=== PATIENT | male | born 1985 | race Caucasian/White ===

== ENCOUNTER 2018-02-24 19:32 | Inpatient (IN) ==
[2018-02-24] MEDS ORDERED: Dextrose 50% in Water Syringe 50 ML ONE (20:02)
[2018-02-24] MEDS ORDERED: Gentamicin/NS 80 mg Premix 100 ML IV.SIG ONE ×2 (20:08→21:03)
[2018-02-24] MEDS ORDERED: Morphine Inj 4 MG/ML Vial IV.PUSH ONE ×2 (20:08→21:12)
[2018-02-24] MEDS ORDERED: ceFAZolin 2 GM Premix Inj 2 GM/50 ML PIGGYBACK IV.SIG ONE (20:08)
[2018-02-24] MEDS ORDERED: Diphtheria/Tetanus/Pertussis Vaccine Inj 0.5 ML Syringe IM ONE (20:08)
[2018-02-24] MEDS ORDERED: Dextrose 50% in Water 50 ML Vial IV.PUSH ONE (20:10)
--- NOTE | 2018-02-24 20:27 | ED ---
HPI General Chief Complaint: Extremity Injury, Lower Stated Complaint: Left leg injury Time Seen by Provider: 02/24/18 19:59 Source: patient Mode of arrival: EMS Limitations: no limitations History of Present Illness HPI Narrative: The patient is a 32 year old male who presents to the [facility] emergency department with a history of left leg injury that occurred while he was participating in [employer] prior to arrival. The patient reports that he was sparring with someone and they fell onto his left leg with all of their weight. The patient reports that he heard a snap and was unable to walk on the left leg due to severe pain. The patient was noted to have an open fracture by ambulance services prior to arrival. He denies hitting his head or losing consciousness. He denies having any neck pain, numbness or tingling to his extremities, or weakness of his extremities. He denies having any chest pain, chest pressure, or shortness of breath. He denies having any abdominal pain or vomiting prior to arrival. The patient was reporting on arrival feeling shaky and does have a history of diabetes. The patient's blood sugar was checked and was noted to be 56 on arrival. The patient is unsure when his tetanus was last updated. Related Data Home Medications Medication Instructions Recorded Confirmed amlodipine 10 mg PO DAILY 02/24/18 02/24/18 doxazosin 8 mg PO DAILY 02/24/18 02/24/18 levothyroxine [Synthroid] 175 mcg PO DAILY 02/24/18 02/24/18 liothyronine 25 mcg PO DAILY 02/24/18 02/24/18 losartan 100 mg PO DAILY 02/24/18 02/24/18 Allergies Allergy/AdvReac Type Severity Reaction Status Date / Time No Known Allergies Allergy Verified 02/24/18 19:51 Review of Systems ROS: all other systems reviewed are negative [facility] Medical History Medical History Diabetes (Acute) HTN (hypertension) (Acute) Hypothyroid (Acute) Surgical History Surgical History No history of previous surgery (Acute) Social History Social History Substance History: No History of Abuse Second Hand Smoke Exposure: No Smoking Status: Never smoker Tobacco Type: Cigarettes Packs Per Day: 1 Cigarettes Per Day: 20.0 Years Smoked: 10 Pack-Years: 10.00 How Often Do You Have a Drink Containing Alcohol: 2 to 4 times a month Recent Travel in [facility] within the Last 8 Weeks: No Recent Out of Country Travel within the Last 8 Weeks: No Immunization History Tetanus Immunization: <5 Years Exam Narrative Exam Narrative: General: The patient is a well-developed well-nourished male, uncomfortable appearing on arrival with a box splint in place of the left lower extremity. Head and Neck exam: Head is normocephalic atraumatic. No facial bone tenderness or increased facial bone mobility noted on palpation. Eyes: EOMI, pupils are equal round and reactive to light. Nose: Midline septum with pink mucous membranes Mouth: Dentition unremarkable. Moist mucus membranes. Posterior oropharynx is not erythematous. No tonsillar hypertrophy. Uvula midline. Airway patent. Neck: The patient has no spinous process tenderness to palpation, no step-off or crepitus, no erythema or ecchymosis. No pain with full active range of motion of his neck. No tracheal deviation. The trachea appears midline. Cardiovascular: Regular rate and rhythm without murmurs, gallops, or rubs. No pulse deficit to the extremities. Lungs: Clear to auscultation bilaterally. No wheezes, rhonchi, or rales. No chest wall tenderness to palpation. No erythema or ecchymosis noted. No crepitus , step off, or flail segment noted. Abdomen: Soft, without tenderness to palpation in all 4 quadrants of the abdomen. No guarding, rebound, or rigidity. No erythema or ecchymosis noted. Extremities: No instability or pain noted on pelvic rock. No clubbing, cyanosis , or edema. 2+ pulses in all 4 extremities. No extremity tenderness or deformity noted on palpation or passive/ active range of motion, except in the area of interest, the left lower extremity, box splint is in place that is gently opened. The patient is noted to have an open wound that is approximately 5 cm along the inner aspect of the middle portion of the lower leg. The patient has tenderness on palpation with deformity noted. The patient has less than 3-second capillary refill of all of his digits. The patient has soft compartments. The patient is able to move his ankle and toes. The patient has intact sensation over all digits. Back: No spinous process tenderness to palpation. No stepoff or crepitus noted. No costovertebral angle tenderness to palpation. No erythema or ecchymosis. Neurologic Exam: Cranial nerves 2-12 were intact on exam. Strength is 5/5 in all 4 extremities. No sensory deficits noted. Skin Exam: No rash noted. Intact skin that is warm and dry. Procedures Orthopedic Fracture Reduction Fracture #1: Time Out Performed: Yes Side: left Fracture Reduction Location: tibia and fibula Analgesia: procedural sedation Technique: direct manipulation Post Reduction X-rays Demonstrate: acceptable reduction Post-Reduction Neuro Exam: intact Post-Reduction Vascular Exam: intact Splint Applied: Yes Patient Tolerated Procedure: well Procedural Sedation Indications: fracture/dislocation reduction ASA Class: ASA 2 Moderate Systemic Disease Preparation: residential monitor applied, pulse oximeter, capnometry used, supplemental O2 applied, suction/airway equipment at bedside and IV secured IV Propofol Dose (mgs): 70 Patient Tolerated Procedure: well Complications: none Course Consultations Consultation #1: The patient's case including history, pertinent physical examination findings, and laboratory studies were discussed with Dr. López. She requested that the patient be made n.p.o. after midnight. She explained that the patient will be taken to the OR in the morning by Dr. Westfall. Time: 20:38 Consultation #2: The patient's case including history, pertinent physical examination findings, and laboratory studies were discussed with Dr. Back. It was agreed that the patient would be admitted to the hospitalist service. Time: 21:04 Initial Documented Vital Signs Temperature 98 F 02/24/18 19:45 Pulse Rate 110 H 02/24/18 19:45 Respiratory Rate 18 02/24/18 19:45 Blood Pressure 183/86 H 02/24/18 19:45 Pulse Oximetry 99 02/24/18 19:45 Last Documented Vital Signs Temperature 98.5 F 02/25/18 02:01 Pulse Rate 109 H 02/25/18 05:22 Respiratory Rate 18 02/25/18 05:48 Blood Pressure 186/82 H 02/25/18 05:22 Pulse Oximetry 96 02/25/18 05:22 Medical Decision Making MDM Narrative Medical decision making narrative: During the course of the patient's emergency department visit, the patient's history, examination, and differential diagnosis were reviewed with the patient. The patient was placed on a residential monitor with oximetry and frequent blood pressure monitoring. The patient had IV access obtained and blood work sent for analysis. A diagnostic evaluation was started regarding the patient's left leg injury. The patient's blood sugar on arrival was noted to be 56. The patient has an open fracture, therefore oral intake is contraindicated at this time, therefore an amp of D 50 is administered. The patient was initially provided normal saline 1 L IV fluid bolus, morphine 4 mg IV for pain, Zofran 4 mg IV for nausea, Ancef, gentamicin, and update to his tetanus is provided. The patient's diagnostic studies are remarkable for a white count of 7.3, hemoglobin 14.2, platelets 191 with monocytes 12.5, i-STAT with creatinine reveals a glucose of 44 which we were aware of the patient's blood sugar being low and he had already been given 1 amp of dextrose, creatinine is 1.2. Chest x- ray shows no acute abnormality. Left tib-fib x-ray reveals a slightly comminuted fracture of the distal shaft of the tibia and fibula with at least a half shaft width displacement. There is an overlying laceration. There is also an obliquely oriented mildly displaced fracture of the fibular head and neck. The patient will be provided procedural sedation for fracture fragment realignment and placement in a splint. A call has been placed out to the orthopedic physician on-call regarding this open fracture. I Spoke to Dr. López regarding this patient's case. She requested that the patient be made n.p.o. after midnight and that the patient would be going to the OR under the care of Dr. Westfall in the morning. The patient's results were discussed with the patient, including the plan of care. I explained that further testing and/ or monitoring is indicated based on the patient's history, examination, and/ or laboratory findings. Therefore, I recommended admission for additional evaluation. The patient expressed understanding and was agreeable with this plan. The patient was admitted to the hospital in stable condition and sent to a bed under the care of the [facility] service. Medical Screen Exam Complete: Yes Emergency Medical Condition: Yes Differential Diagnosis Differential Diagnosis: Laceration, versus open fracture, versus compartment syndrome Medical Records Medical records reviewed: Yes I reviewed the patient's medical records. Lab Data Lab results reviewed: Yes I reviewed the patient's lab results. Result diagrams: 02/25/18 05:32 02/25/18 05:32 Lab Results 02/24/18 02/24/18 02/24/18 Range/Units 20:10 20:10 20:10 WBC 7.3 (4.0-11.0) th/mm3 RBC 4.65 (4.50-5.90) mil/mm3 Hgb 14.2 (13.0-17.0) gm/dL POC Hgb (Calc) (13.0-17.0) g/dL Hct 41.6 (39.0-51.0) % POC Hct (39-51.0) % MCV 89.5 (80.0-100.0) fL MCH 30.6 (27.0-34.0) pg MCHC 34.2 (32.0-36.0) % RDW 12.9 (11.6-17.2) % Plt Count 191 (150-450) th/mm3 MPV 9.5 (7.0-11.0) fL Prelim Diff (Auto) Slide review pending Neut % (Auto) 61.7 (16.0-70.0) % Lymph % (Auto) 24.4 (9.0-44.0) % [place] % (Auto) 12.5 H (0.0-8.0) % Eos % (Auto) 0.6 (0.0-4.0) % Baso % (Auto) 0.8 (0.0-2.0) % Neut # (Auto) 4.5 (1.8-7.7) th/mm3 Lymph # (Auto) 1.8 (1.0-4.8) th/mm3 [place] # (Auto) 0.9 (0.0-0.9) th/mm3 Eos # (Auto) 0.0 (0.0-0.4) th/mm3 Baso # (Auto) 0.1 (0.0-0.2) th/mm3 WBC Differential . Diff Scan Auto diff confirmed Differential Comment . Platelet Estimate Normal (Normal) Platelet Morphology Normal (Normal) PT 11.3 (9.8-11.6) sec INR 1.1 Ratio APTT 17.8 L (24.3-30.1) sec POC Sodium (137-144) mmol/L Sodium (136-145) meq/L POC Potassium (3.6-5.0) mmol/L Potassium (3.5-5.1) meq/L POC Chloride (102-111) mmol/L Chloride (98-107) meq/L Carbon Dioxide (21.0-32.0) meq/L Anion Gap (5-15) meq/L POC BUN (5-21) mg/dL BUN (7-18) mg/dL Creatinine (0.60-1.30) mg/dL POC Creatinine (0.6-1.3) mg/dL Estimated GFR (>89) mL/min POC Glucose (68-110) mg/dL Random Glucose (74-106) mg/dL Calcium (8.5-10.1) mg/dL Troponin I Less than 0.02 L (0.02-0.05) ng/mL TSH (0.358-3.740) uIU/mL Urine Color (Yellw/Straw) Urine Clarity (Clear) Urine pH (5.0-8.5) Ur Specific [place] (1.002-1.035) Urine Protein (Neg-Trace) mg/dL Urine Glucose (UA) (Negative) mg/dL Urine Ketones (Negative) mg/dL Urine Occult Blood (Negative) Urine Nitrate (Negative) Urine Bilirubin (Negative) Urine Urobilinogen (Less than 2) mg/dL Ur Leukocyte Esterase (Negative) Urine RBC (0-3) /hpf Urine WBC (0-5) /hpf Urine Mucus (Occasional) /lpf Micro UA Comment Ur Microscopic Review Urine Culture Comments Blood Type Blood Type Recheck Antibody Screen 02/24/18 02/24/18 02/24/18 Range/Units 20:10 20:10 20:10 WBC (4.0-11.0) th/mm3 RBC (4.50-5.90) mil/mm3 Hgb (13.0-17.0) gm/dL POC Hgb (Calc) 13.3 (13.0-17.0) g/dL Hct (39.0-51.0) % POC Hct 39.0 (39-51.0) % MCV (80.0-100.0) fL MCH (27.0-34.0) pg MCHC (32.0-36.0) % RDW (11.6-17.2) % Plt Count (150-450) th/mm3 MPV (7.0-11.0) fL Prelim Diff (Auto) Neut % (Auto) (16.0-70.0) % Lymph % (Auto) (9.0-44.0) % [place] % (Auto) (0.0-8.0) % Eos % (Auto) (0.0-4.0) % Baso % (Auto) (0.0-2.0) % Neut # (Auto) (1.8-7.7) th/mm3 Lymph # (Auto) (1.0-4.8) th/mm3 [place] # (Auto) (0.0-0.9) th/mm3 Eos # (Auto) (0.0-0.4) th/mm3 Baso # (Auto) (0.0-0.2) th/mm3 WBC Differential Diff Scan Differential Comment Platelet Estimate (Normal) Platelet Morphology (Normal) PT (9.8-11.6) sec INR Ratio APTT (24.3-30.1) sec POC Sodium 143 (137-144) mmol/L Sodium 143 (136-145) meq/L POC Potassium 3.5 L (3.6-5.0) mmol/L Potassium 3.6 (3.5-5.1) meq/L POC Chloride 102 (102-111) mmol/L Chloride 108 H (98-107) meq/L Carbon Dioxide 25.3 (21.0-32.0) meq/L Anion Gap 10 (5-15) meq/L POC BUN 17 (5-21) mg/dL BUN 16 (7-18) mg/dL Creatinine 1.25 (0.60-1.30) mg/dL POC Creatinine 1.2 (0.6-1.3) mg/dL Estimated GFR 68 L (>89) mL/min POC Glucose 44 L* (68-110) mg/dL Random Glucose 41 L* (74-106) mg/dL Calcium 8.3 L (8.5-10.1) mg/dL Troponin I (0.02-0.05) ng/mL TSH 4.840 H (0.358-3.740) uIU/mL Urine Color (Yellw/Straw) Urine Clarity (Clear) Urine pH (5.0-8.5) Ur Specific [place] (1.002-1.035) Urine Protein (Neg-Trace) mg/dL Urine Glucose (UA) (Negative) mg/dL Urine Ketones (Negative) mg/dL Urine Occult Blood (Negative) Urine Nitrate (Negative) Urine Bilirubin (Negative) Urine Urobilinogen (Less than 2) mg/dL Ur Leukocyte Esterase (Negative) Urine RBC (0-3) /hpf Urine WBC (0-5) /hpf Urine Mucus (Occasional) /lpf Micro UA Comment Ur Microscopic Review Urine Culture Comments Blood Type A Positive Blood Type Recheck Required Antibody Screen Negative 02/24/18 02/24/18 02/25/18 Range/Units 20:55 21:14 00:09 WBC (4.0-11.0) th/mm3 RBC (4.50-5.90) mil/mm3 Hgb (13.0-17.0) gm/dL POC Hgb (Calc) (13.0-17.0) g/dL Hct (39.0-51.0) % POC Hct (39-51.0) % MCV (80.0-100.0) fL MCH (27.0-34.0) pg MCHC (32.0-36.0) % RDW (11.6-17.2) % Plt Count (150-450) th/mm3 MPV (7.0-11.0) fL Prelim Diff (Auto) Neut % (Auto) (16.0-70.0) % Lymph % (Auto) (9.0-44.0) % [place] % (Auto) (0.0-8.0) % Eos % (Auto) (0.0-4.0) % Baso % (Auto) (0.0-2.0) % Neut # (Auto) (1.8-7.7) th/mm3 Lymph # (Auto) (1.0-4.8) th/mm3 [place] # (Auto) (0.0-0.9) th/mm3 Eos # (Auto) (0.0-0.4) th/mm3 Baso # (Auto) (0.0-0.2) th/mm3 WBC Differential Diff Scan Differential Comment Platelet Estimate (Normal) Platelet Morphology (Normal) PT (9.8-11.6) sec INR Ratio APTT (24.3-30.1) sec POC Sodium (137-144) mmol/L Sodium (136-145) meq/L POC Potassium (3.6-5.0) mmol/L Potassium (3.5-5.1) meq/L POC Chloride (102-111) mmol/L Chloride (98-107) meq/L Carbon Dioxide (21.0-32.0) meq/L Anion Gap (5-15) meq/L POC BUN (5-21) mg/dL BUN (7-18) mg/dL Creatinine (0.60-1.30) mg/dL POC Creatinine (0.6-1.3) mg/dL Estimated GFR (>89) mL/min POC Glucose 93 91 155 H (68-110) mg/dL Random Glucose (74-106) mg/dL Calcium (8.5-10.1) mg/dL Troponin I (0.02-0.05) ng/mL TSH (0.358-3.740) uIU/mL Urine Color (Yellw/Straw) Urine Clarity (Clear) Urine pH (5.0-8.5) Ur Specific [place] (1.002-1.035) Urine Protein (Neg-Trace) mg/dL Urine Glucose (UA) (Negative) mg/dL Urine Ketones (Negative) mg/dL Urine Occult Blood (Negative) Urine Nitrate (Negative) Urine Bilirubin (Negative) Urine Urobilinogen (Less than 2) mg/dL Ur Leukocyte Esterase (Negative) Urine RBC (0-3) /hpf Urine WBC (0-5) /hpf Urine Mucus (Occasional) /lpf Micro UA Comment Ur Microscopic Review Urine Culture Comments Blood Type Blood Type Recheck Antibody Screen 02/25/18 02/25/18 02/25/18 Range/Units 01:59 05:30 05:32 WBC 10.5 (4.0-11.0) th/mm3 RBC 4.46 L (4.50-5.90) mil/mm3 Hgb 13.9 (13.0-17.0) gm/dL POC Hgb (Calc) (13.0-17.0) g/dL Hct 40.7 (39.0-51.0) % POC Hct (39-51.0) % MCV 91.3 (80.0-100.0) fL MCH 31.2 (27.0-34.0) pg MCHC 34.1 (32.0-36.0) % RDW 12.9 (11.6-17.2) % Plt Count 190 (150-450) th/mm3 MPV 8.8 (7.0-11.0) fL Prelim Diff (Auto) Neut % (Auto) 78.4 H (16.0-70.0) % Lymph % (Auto) 11.1 (9.0-44.0) % [place] % (Auto) 10.1 H (0.0-8.0) % Eos % (Auto) 0.2 (0.0-4.0) % Baso % (Auto) 0.2 (0.0-2.0) % Neut # (Auto) 8.3 H (1.8-7.7) th/mm3 Lymph # (Auto) 1.2 (1.0-4.8) th/mm3 [place] # (Auto) 1.1 H (0.0-0.9) th/mm3 Eos # (Auto) 0.0 (0.0-0.4) th/mm3 Baso # (Auto) 0.0 (0.0-0.2) th/mm3 WBC Differential . Diff Scan Differential Comment Auto diff final Platelet Estimate (Normal) Platelet Morphology (Normal) PT (9.8-11.6) sec INR Ratio APTT (24.3-30.1) sec POC Sodium (137-144) mmol/L Sodium (136-145) meq/L POC Potassium (3.6-5.0) mmol/L Potassium (3.5-5.1) meq/L POC Chloride (102-111) mmol/L Chloride (98-107) meq/L Carbon Dioxide (21.0-32.0) meq/L Anion Gap (5-15) meq/L POC BUN (5-21) mg/dL BUN (7-18) mg/dL Creatinine (0.60-1.30) mg/dL POC Creatinine (0.6-1.3) mg/dL Estimated GFR (>89) mL/min POC Glucose 251 H 368 H (68-110) mg/dL Random Glucose (74-106) mg/dL Calcium (8.5-10.1) mg/dL Troponin I (0.02-0.05) ng/mL TSH (0.358-3.740) uIU/mL Urine Color (Yellw/Straw) Urine Clarity (Clear) Urine pH (5.0-8.5) Ur Specific [place] (1.002-1.035) Urine Protein (Neg-Trace) mg/dL Urine Glucose (UA) (Negative) mg/dL Urine Ketones (Negative) mg/dL Urine Occult Blood (Negative) Urine Nitrate (Negative) Urine Bilirubin (Negative) Urine Urobilinogen (Less than 2) mg/dL Ur Leukocyte Esterase (Negative) Urine RBC (0-3) /hpf Urine WBC (0-5) /hpf Urine Mucus (Occasional) /lpf Micro UA Comment Ur Microscopic Review Urine Culture Comments Blood Type Blood Type Recheck Antibody Screen 02/25/18 02/25/18 02/25/18 Range/Units 05:32 05:35 06:49 WBC (4.0-11.0) th/mm3 RBC (4.50-5.90) mil/mm3 Hgb (13.0-17.0) gm/dL POC Hgb (Calc) (13.0-17.0) g/dL Hct (39.0-51.0) % POC Hct (39-51.0) % MCV (80.0-100.0) fL MCH (27.0-34.0) pg MCHC (32.0-36.0) % RDW (11.6-17.2) % Plt Count (150-450) th/mm3 MPV (7.0-11.0) fL Prelim Diff (Auto) Neut % (Auto) (16.0-70.0) % Lymph % (Auto) (9.0-44.0) % [place] % (Auto) (0.0-8.0) % Eos % (Auto) (0.0-4.0) % Baso % (Auto) (0.0-2.0) % Neut # (Auto) (1.8-7.7) th/mm3 Lymph # (Auto) (1.0-4.8) th/mm3 [place] # (Auto) (0.0-0.9) th/mm3 Eos # (Auto) (0.0-0.4) th/mm3 Baso # (Auto) (0.0-0.2) th/mm3 WBC Differential Diff Scan Differential Comment Platelet Estimate (Normal) Platelet Morphology (Normal) PT (9.8-11.6) sec INR Ratio APTT (24.3-30.1) sec POC Sodium (137-144) mmol/L Sodium 134 L (136-145) meq/L POC Potassium (3.6-5.0) mmol/L Potassium 4.7 D (3.5-5.1) meq/L POC Chloride (102-111) mmol/L Chloride 98 D (98-107) meq/L Carbon Dioxide 24.3 (21.0-32.0) meq/L Anion Gap 12 (5-15) meq/L POC BUN (5-21) mg/dL BUN 13 (7-18) mg/dL Creatinine 1.18 (0.60-1.30) mg/dL POC Creatinine (0.6-1.3) mg/dL Estimated GFR 72 L (>89) mL/min POC Glucose 323 H (68-110) mg/dL Random Glucose 365 H D (74-106) mg/dL Calcium 8.7 (8.5-10.1) mg/dL Troponin I (0.02-0.05) ng/mL TSH (0.358-3.740) uIU/mL Urine Color Yellow (Yellw/Straw) Urine Clarity Clear (Clear) Urine pH 5.0 (5.0-8.5) Ur Specific [place] 1.015 (1.002-1.035) Urine Protein Negative (Neg-Trace) mg/dL Urine Glucose (UA) 150 H (Negative) mg/dL Urine Ketones 20 (Negative) mg/dL Urine Occult Blood Negative (Negative) Urine Nitrate Negative (Negative) Urine Bilirubin Negative (Negative) Urine Urobilinogen Less than 2 (Less than 2) mg/dL Ur Leukocyte Esterase Negative (Negative) Urine RBC 2 (0-3) /hpf Urine WBC 1 (0-5) /hpf Urine Mucus Few H (Occasional) /lpf Micro UA Comment Culture not ind Ur Microscopic Review Not Reportable Urine Culture Comments Culture not ind Blood Type Blood Type Recheck Antibody Screen Imaging Data Radiologist's impression: Tibia/Fibula X-Ray 02/24/18 20:05 CONCLUSION: Slightly comminuted fractures of the distal shaft tibia and fibula as above with additional mildly displaced fracture of the left fibular head and neck. Chest X-Ray 02/24/18 20:06 CONCLUSION: Negative examination. Pelvis X-Ray 02/24/18 20:06 CONCLUSION: No acute bony abnormality. Tibia/Fibula X-Ray 02/24/18 21:26 CONCLUSION: Improvement in alignment at distal tibial comminuted fracture. Discharge Plan Discharge Disposition Patient Disposition: 32 Still Patient Discharge Details Diagnosis: Open fracture of left fibula and tibia Physicians Team ED Provider: Awilda Schneider Primary Care Provider: UNKNOWN, Attending Provider: Clover Sethi Other Providers: Jacquelin López Todd A Status ED Status: Left Department Discharge Information Discharge Date/Time: 02/24/18 23:20
--- NOTE | 2018-02-24 20:35 | XR ---
EXAM DATE: 02/24/2018 8:31 PM EDT AGE/SEX: 32 years / Male INDICATIONS: Evaluate for pneumonia, pneumothorax, or communicable disease. Left tib/fib fracture. CLINICAL DATA: This is the patient's initial encounter. Patient reports that signs and symptoms have been present for 1 day and indicates a pain score of 0/10. MEDICAL/SURGICAL HISTORY: None. None. COMPARISON: No prior exams available for comparison. FINDINGS: A single AP view of the chest demonstrates the lungs to be symmetrically aerated without evidence of mass, infiltrate or effusion. The cardiomediastinal contours are unremarkable. Osseous structures a re intact. CONCLUSION: Negative examination. Electronically signed by: Roge Acevedo MD 02/24/2018 8:34 PM EDT
[2018-02-24 20:40] LABS: Baso # (Auto) 0.1 th/mm3 (0.0-0.2); Baso % (Auto) 0.8 % (0.0-2.0); Eos % (Auto) 0.6 % (0.0-4.0); Hematocrit 41.6 % (39.0-51.0); Hemoglobin 14.2 gm/dL (13.0-17.0); Lymph # (Auto) 1.8 th/mm3 (1.0-4.8); Lymph % (Auto) 24.4 % (9.0-44.0); Mean Corpuscular HGB Conc 34.2 % (32.0-36.0); Mean Corpuscular Hemoglobin 30.6 pg (27.0-34.0); Mean Corpuscular Volume 89.5 fL (80.0-100.0); Mean Platelet Volume 9.5 fL (7.0-11.0); Mono # (Auto) 0.9 th/mm3 (0.0-0.9); Mono % (Auto) 12.5 % (0.0-8.0); Neut # (Auto) 4.5 th/mm3 (1.8-7.7); Neut % (Auto) 61.7 % (16.0-70.0); Platelet Count 191 th/mm3 (150-450); Red Blood Count 4.65 mil/mm3 (4.50-5.90); Red Cell Distribution Width 12.9 % (11.6-17.2); White Blood Count 7.3 th/mm3 (4.0-11.0)
--- NOTE | 2018-02-24 20:42 | XR ---
EXAM DATE: 02/24/2018 8:36 PM EDT AGE/SEX: 32 years / Male INDICATIONS: Lower leg open fracture. CLINICAL DATA: This is the patient's initial encounter. Patient reports that signs and symptoms have been present for 1 day and indicates a pain score of 10/10. MEDICAL/SURGICAL HISTORY: None. None. COMPARISON: No prior exams available for comparison. FINDINGS: There is a slightly comminuted fracture of both the distal shaft of the tibia and fibula with at leas t half shaft width displacement. There is overlying laceration. There is also an obliquely oriented m ildly displaced fracture of the fibular head and neck. CONCLUSION: Slightly comminuted fractures of the distal shaft tibia and fibula as above with additional mildly di splaced fracture of the left fibular head and neck. Electronically signed by: Azeem Guillermo MD 02/24/2018 8:41 PM EDT
[2018-02-24] MEDS ORDERED: Bisacodyl 10 MG Supp RECTAL PRN (21:04)
[2018-02-24] MEDS ORDERED: Dextrose 50% in Water 50 ML Vial IV.PUSH PRN (21:04)
[2018-02-24] MEDS ORDERED: Naloxone Inj 0.4 MG/ML Vial IV.PUSH PRN (21:08)
[2018-02-24] MEDS ORDERED: fentaNYL Citrate Inj 100 MCG/2 ML Ampul IV.PUSH ONE (21:13)
--- NOTE | 2018-02-24 21:14 | P.HP ---
History of Present Illness Service: Hospitalist Primary Care Physician: UNKNOWN Chief Complaint: Left leg pain History of Present Illness: This is a 32yo male patient with PMHX of DM with implanted insulin pump, HTN and hypothyroidism who was in his normal state of health until he injured his left leg while participating in a Judo sparring match. He was sparring with someone when he fell onto his left leg with all of their weight. Patient reports hearing a snap and was unable to place any weight on the left leg secondary to severe pain. He is also noted to have open laceration. Patient denies hitting his head or losing consciousness. He denies any pain in his neck , weakness, numbness or tingling. On arrival to the ED, patient reports feeling shaky. He was found to have a low blood sugar 44 and was given an amp of D50. Tib/fib xrays reveal a slightly comminuted fracture of the distal shaft of the tibia and fibula with at least half shaft width displacement and overlying laceration. There is also an obliquely oriented mildly displaced fracture of the fibular head neck. Review of Systems All other systems reviewed negative except as stated in HPI PMFSH - History History Provided By: Patient - Medical History Medical History: Medical History (Last Reviewed 02/24/18 @ 21:32 by Priya Laureano) Diabetes HTN (hypertension) Hypothyroid - Surgical History Surgical History: Surgical History (Last Reviewed 02/24/18 @ 21:32 by Priya Laureano) No history of previous surgery - Family History Family History: Family History (Last Updated 02/24/18 @ 21:32 by Priya Laureano) Other Hypertension - Social History I have reviewed the patient's Social History: Yes - Tobacco History Tobacco Use In Past 30 Days: No Smoking Status: Former smoker Tobacco Type: Cigarettes Packs Per Day: 1 Years Smoked: 10 - Alcohol History How Often Do You Have a Drink Containing Alcohol: 2 to 4 times a month - Substance Use History Substance History: No History of Abuse - Travel History Recent Travel in the [place] Within the Last 8 Weeks: No Recent Travel Out of the Country Within the Last 8 Weeks: No - Immunization History Tetanus Immunization: <5 Years Medications and Allergies Active Medications: Active Medications Acetaminophen (Tylenol) 650 mg PO Q6HR PRN PRN Reason: PAIN SCALE 1 TO 2 Al Hydroxide/Mg Hydroxide (Milk Of Magnesia Liq) 30 ml PO Q12H PRN PRN Reason: Mild Constipation Amlodipine Besylate (Norvasc) 10 mg PO DAILY [facility] Bisacodyl (Dulcolax Supp) 10 mg RECTAL DAILY PRN PRN Reason: SEVERE CONSITIPATION Dextrose (D50w Vial) 50 ml IV.PUSH UNSCH PRN PRN Reason: PER HYPOGLYCEMIA PROTOCOL Enalaprilat (Vasotec Inj) 1.25 mg IV.PUSH Q6H PRN PRN Reason: SBP>160, DBP>90 Glucagon (Glucagon Inj) 1 mg OTHER PRN PRN PRN Reason: for Hypoglycemia Protocol Hydromorphone HCl (Dilaudid Pf Inj) 1 mg IV.PUSH ONCE ONE Stop: 02/24/18 21:13 Potassium Chloride/Dextrose/Sod Cl (D5w/1/2ns + Kcl 20 Meq Inj) 1,000 mls @ 50 mls/hr IV.CONT .Q20H JENNIFER Cefazolin Sodium/Dextrose (Ancef 2 Gm Premix Inj) 2 gm in 50 mls @ 100 mls/hr IV.SIG Q8H JENNIFER Stop: 02/25/18 14:29 Insulin Aspart (Novolog Insulin Correctional Sugar Inj) 0 unit SQ ACHS JENNIFER; Protocol Insulin Detemir (Levemir Inj) 5 unit SQ BID JENNIFER Lactulose (Lactulose Liq) 30 ml PO DAILY PRN PRN Reason: SEVERE CONSITIPATION Morphine Sulfate (Morphine Inj) 4 mg IV.PUSH Q3H PRN PRN Reason: PAIN 6-10;IF UNABLE TO TAKE PO Morphine Sulfate (Morphine Inj) 4 mg IV.PUSH Q3H PRN PRN Reason: BREAKTHROUGH PAIN Naloxone HCl (Narcan Inj) 0.4 mg IV.PUSH UNSCH PRN PRN Reason: SEE LABEL COMMENTS Non-Formulary Medication (Doxazosin [Doxazosin]) 8 mg PO DAILY [facility] Non-Formulary Medication (Levothyroxine [Synthroid]) 175 mcg PO DAILY [facility] Non-Formulary Medication (Losartan [Losartan]) 100 mg PO DAILY [facility] Ondansetron HCl (Zofran Inj) 4 mg IV.PUSH Q6H PRN PRN Reason: NAUSEA OR VOMITING Oxycodone/Acetaminophen (Percocet 10/325 Mg) 1 tab PO Q6H PRN PRN Reason: PAIN SCALE 6 TO 10 Oxycodone/Acetaminophen (Percocet 5/325 Mg) 1 tab PO Q6H PRN PRN Reason: PAIN SCALE 3 TO 5 Sennosides (Senokot) 17.2 mg PO Q12H PRN PRN Reason: Moderate Constipation Sodium Chloride (Ns Flush) 2 ml IV.FLUSH PRN PRN PRN Reason: FLUSH AFTER USING IV ACCESS Allergies Allergy/AdvReac Type Severity Reaction Status Date / Time No Known Allergies Allergy Verified 02/24/18 19:51 Home Medications Medication Instructions Recorded Confirmed Type amlodipine 10 mg PO DAILY 02/24/18 02/24/18 History doxazosin 8 mg PO DAILY 02/24/18 02/24/18 History levothyroxine [Synthroid] 175 mcg PO DAILY 02/24/18 02/24/18 History liothyronine 25 mcg PO DAILY 02/24/18 02/24/18 History losartan 100 mg PO DAILY 02/24/18 02/24/18 History Exam Vital signs: Vital Signs 02/24/18 19:45 02/24/18 19:51 02/24/18 20:25 Temperature 98 F Pulse Rate 110 H 102 H Respiratory Rate 18 18 20 Blood Pressure 183/86 H Pulse Oximetry 99 98 100 Intake & Output 02/24/18 02/24/18 02/25/18 06:59 18:59 06:59 Intake Total 50 / 50 Balance 50 / 50 Weight 99.79 kg Intake: IV 50 / 50 Ancef 2 GM Premix Inj 2 gm In 50 / 50 50 ml @ 100 mls/hr IV.SIG ONCE ONE Rx#:[id number] Narrative: GENERAL: WDWN male patient, in obvious distress secondary to left leg pain. Awake and alert. SKIN: Warm and dry. HEAD: Atraumatic. Normocephalic. EYES: Pupils equal and round. No scleral icterus. No injection or drainage. ENT: No nasal bleeding or discharge. Mucous membranes pink and moist. NECK: Trachea midline. CARDIOVASCULAR: Tachycardic. No murmur auscultated. RESPIRATORY: No accessory muscle use. Clear to auscultation. Breath sounds equal bilaterally. GASTROINTESTINAL: Abdomen soft, non-tender, nondistended. Hepatic and splenic margins not palpable. MUSCULOSKELETAL: Extremities without clubbing, cyanosis, or edema. LLE in splint. NV intact distally. NEUROLOGICAL: Awake and alert. No obvious cranial nerve deficits. Motor grossly within normal limits except for limited exam LLE. Able to move all extremities spontaneously. Normal speech. PSYCHIATRIC: Appropriate mood and affect; insight and judgment normal. Results - Labs CBC & Chem 7: 02/24/18 20:10 02/24/18 20:10 Labs: Laboratory Results - last 24 hr 02/24/18 02/24/18 02/24/18 20:10 20:10 20:10 WBC 7.3 RBC 4.65 Hgb 14.2 POC Hgb (Calc) 13.3 Hct 41.6 POC Hct 39.0 MCV 89.5 MCH 30.6 MCHC 34.2 RDW 12.9 Plt Count 191 MPV 9.5 Prelim Diff (Auto) Slide review pending Neut % (Auto) 61.7 Lymph % (Auto) 24.4 Davison % (Auto) 12.5 H Eos % (Auto) 0.6 Baso % (Auto) 0.8 Neut # (Auto) 4.5 Lymph # (Auto) 1.8 Davison # (Auto) 0.9 Eos # (Auto) 0.0 Baso # (Auto) 0.1 Differential Comment . POC Sodium 143 POC Potassium 3.5 L POC Chloride 102 POC BUN 17 POC Creatinine 1.2 POC Glucose 44 L* Troponin I Less than 0.02 L Blood Type Blood Type Recheck Antibody Screen 02/24/18 02/24/18 20:10 20:55 WBC RBC Hgb POC Hgb (Calc) Hct POC Hct MCV MCH MCHC RDW Plt Count MPV Prelim Diff (Auto) Neut % (Auto) Lymph % (Auto) Davison % (Auto) Eos % (Auto) Baso % (Auto) Neut # (Auto) Lymph # (Auto) Davison # (Auto) Eos # (Auto) Baso # (Auto) Differential Comment POC Sodium POC Potassium POC Chloride POC BUN POC Creatinine POC Glucose 93 Troponin I Blood Type A Positive Blood Type Recheck Required Antibody Screen Negative - Imaging Impressions Tibia/Fibula X-Ray 02/24/18 20:05 CONCLUSION: Slightly comminuted fractures of the distal shaft tibia and fibula as above with additional mildly displaced fracture of the left fibular head and neck. Chest X-Ray 02/24/18 20:06 CONCLUSION: Negative examination. Caprini VTE Risk Assessment Caprini VTE Risk Assessment: No/Low Risk (score <= 1) Caprini Risk Assessment Model: Point Value = 1 Point Value = 2 Point Value = 3 Point Value = 5 Age 41-60 Minor surgery BMI > 25 kg/m2 Swollen legs Varicose veins or History of unexplained or recurrent spontaneous Oral contraceptives or hormone replacement Sepsis (< 1 month) Serious lung disease, including pneumonia (< 1 month) Abnormal pulmonary function Acute myocardial infarction Congestive heart failure (< 1 month) History of inflammatory bowel disease Medical patient at bed rest Age 61-74 Arthroscopic surgery Major open surgery (> 45 min) Laparoscopic surgery (> 45 min) Malignancy Confined to bed (> 72 hours) Immobilizing plaster cast Central venous access Age >= 75 History of VTE Family history of VTE Factor V Leiden Prothrombin [id number] Lupus anticoagulant Anticardiolipin antibodies Elevated serum homocysteine Heparin-induced thrombocytopenia Other congenital or acquired thrombophilia Stroke (< 1 month) Elective arthroplasty Hip, pelvis, or leg fracture Acute spinal cord injury (< 1 month) Prophylaxis Regimen: Total Risk Factor Score Risk Level Prophylaxis Regimen 0-1 Low Early ambulation 2 Moderate Order ONE of the following: *Sequential Compression Device (SCD) *Heparin 5000 units SQ BID 3-4 Higher Order ONE of the following medications: *Heparin 5000 units SQ TID *Enoxaparin/Lovenox 40 mg SQ daily (WT < 150 kg, CrCl > 30 mL/min) *Enoxaparin/Lovenox 30 mg SQ daily (WT < 150 kg, CrCl > 10-29 mL/min) *Enoxaparin/Lovenox 30 mg SQ BID (WT < 150 kg, CrCl > 30 mL/min) AND/OR *Sequential Compression Device (SCD) 5 or more Highest Order ONE of the following medications: *Heparin 5000 units SQ TID (Preferred with Epidurals) *Enoxaparin/Lovenox 40 mg SQ daily (WT < 150 kg, CrCl > 30 mL/min) *Enoxaparin/Lovenox 30 mg SQ daily (WT < 150 kg, CrCl > 10-29 mL/min) *Enoxaparin/Lovenox 30 mg SQ BID (WT < 150 kg, CrCl > 30 mL/min) AND *Sequential Compression Device (SCD) Assessment and Plan - Plan 32yo male patient with PMHX of DM, HTN and hypothyroidism who was in his normal state of health until he injured his left leg while participating in a [employer] match. 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 Westfall -IV Cefazolin -NWB LLE -NPO after MN -Pain management with bowel regimen Hypertension, uncontrolled, suspect secondary to LLE pain from open fracture injury -Resume on home dose of amlodipine, Cozaar and Cardura -Continue to monitor BP and adjust treatment accordingly Diabetes hypoglycemic at ED presentation, blood sugar 44, given 1 amp D50 -Patient has an implanted insulin pump with basal 2u/hr and he boluses on sliding scale. -Insulin pump to be turned off. Will cover with Levemir 5u BID and ISS. -accuchecks -hypoglycemic protocol Hypothyroidism -Resume on home dose of levothyroxine 175mcg daily DVT prophylaxis -Chemical prophylaxis contraindicated secondary to upcoming surgical intervention Code Status: Full Discussed Condition With: patient, family at bedside, ED physician, Dr. Back
[2018-02-24 21:18] LABS: Platelet Estimate Normal (Normal); Platelet Morphology Normal (Normal)
[2018-02-24] MEDS ORDERED: Morphine Inj 4 MG/ML Vial IV.PUSH PRN (21:24)
[2018-02-24] MEDS ORDERED: HYDROmorphone PF Inj 1 MG/ML Ampul IV.PUSH ONE (21:30)
[2018-02-24 21:32] LABS: Activated Partial Thrombo Time 17.8 sec (24.3-30.1); INR 1.1 Ratio; Prothrombin Time 11.3 sec (9.8-11.6)
--- NOTE | 2018-02-24 21:55 | XR ---
EXAM DATE: 02/24/2018 9:52 PM EDT AGE/SEX: 32 years / Male INDICATIONS: Patient fell. CLINICAL DATA: This is the patient's initial encounter. Patient reports that signs and symptoms have been present for 1 day and indicates a pain score of 10/10. MEDICAL/SURGICAL HISTORY: None. None. COMPARISON: No prior exams available for comparison. FINDINGS: Examination of the pelvis demonstrates no evidence of fracture or dislocation. Bony mineralization i s normal. There is no widening of the sacroiliac joints. No foreign body is identified. CONCLUSION: No acute bony abnormality. Electronically signed by: Azeem Guillermo MD 02/24/2018 9:54 PM EDT
[2018-02-24] MEDS ORDERED: KCL 20 mEq/D5W/NaCl 0.45% Inj 1,000 ML IV.CONT SCH (22:00)
--- NOTE | 2018-02-24 22:12 | XR ---
EXAM DATE: 02/24/2018 9:56 PM EDT AGE/SEX: 32 years / Male INDICATIONS: Post reduction fracture left tibia. CLINICAL DATA: This is the patient's initial encounter. Patient reports that signs and symptoms have been present for 1 day and indicates a pain score of 10/10. MEDICAL/SURGICAL HISTORY: None. None. COMPARISON: No prior exams available for comparison. FINDINGS: There is improvement in alignment of the distal tibia and fibula across mildly comminuted fractures. Mildly displaced proximal fibular fracture again noted. CONCLUSION: Improvement in alignment at distal tibial comminuted fracture. Electronically signed by: Azeem Guillermo MD 02/24/2018 10:11 PM EDT
[2018-02-24 22:32] LABS: Calcium 8.3 mg/dL (8.5-10.1); Carbon Dioxide 25.3 meq/L (21.0-32.0); Potassium 3.6 meq/L (3.5-5.1)
[2018-02-24 22:48] LABS: Thyroid Stimulating Hormone 4.84 uIU/mL (0.358-3.740)
[2018-02-24] MEDS: Insulin Detemir Inj 1,000 UNIT/10 ML Vial SQ SCH (23:58)
[2018-02-25] MEDS: oxyCODONE/Acetaminophen 10/325 Tablet PO PRN ×3 (00:07→19:44)
[2018-02-25] MEDS: Levothyroxine 75 MCG Tablet PO SCH ×2 (00:11→05:48)
[2018-02-25] MEDS: Morphine Inj 4 MG/ML Vial IV.PUSH PRN ×5 (00:46→22:48)
[2018-02-25] MEDS: Insulin Detemir Inj 1,000 UNIT/10 ML Vial SQ SCH (01:19)
[2018-02-25] MEDS ORDERED: Zolpidem Tartrate 5 MG Tablet PO ONE (01:23)
[2018-02-25] MEDS ORDERED: HYDROmorphone PF Inj 1 MG/ML Ampul IV.PUSH ONE (01:24)
[2018-02-25] MEDS ORDERED: Sod Chloride 0.9% Inj 1,000 ML IV.CONT SCH (02:30)
[2018-02-25] MEDS ORDERED: ceFAZolin 2 GM Premix Inj 2 GM/50 ML PIGGYBACK IV.SIG SCH (04:00)
[2018-02-25] MEDS: Levothyroxine 100 MCG Tablet PO SCH (05:48)
[2018-02-25 06:04] LABS: Baso % (Auto) 0.2 % (0.0-2.0); Eos % (Auto) 0.2 % (0.0-4.0); Hematocrit 40.7 % (39.0-51.0); Hemoglobin 13.9 gm/dL (13.0-17.0); Lymph # (Auto) 1.2 th/mm3 (1.0-4.8); Lymph % (Auto) 11.1 % (9.0-44.0); Mean Corpuscular HGB Conc 34.1 % (32.0-36.0); Mean Corpuscular Hemoglobin 31.2 pg (27.0-34.0); Mean Corpuscular Volume 91.3 fL (80.0-100.0); Mean Platelet Volume 8.8 fL (7.0-11.0); Mono # (Auto) 1.1 th/mm3 (0.0-0.9); Mono % (Auto) 10.1 % (0.0-8.0); Neut # (Auto) 8.3 th/mm3 (1.8-7.7); Neut % (Auto) 78.4 % (16.0-70.0); Platelet Count 190 th/mm3 (150-450); Red Blood Count 4.46 mil/mm3 (4.50-5.90); Red Cell Distribution Width 12.9 % (11.6-17.2); White Blood Count 10.5 th/mm3 (4.0-11.0)
[2018-02-25 06:22] LABS: Bilirubin,Urine Negative (Negative); Clarity,Urine Clear (Clear); Color,Urine Yellow (Yellw/Straw); Glucose,Urine (UA) 150 mg/dL (Negative); Leukocyte Esterase,Urine Negative (Negative); Mucus,Urine Few /lpf (Occasional); Nitrite,Urine Negative (Negative); Specific Gravity,Urine 1.015 (1.002-1.035)
[2018-02-25 06:35] LABS: Calcium 8.7 mg/dL (8.5-10.1); Carbon Dioxide 24.3 meq/L (21.0-32.0); Potassium 4.7 meq/L (3.5-5.1)
[2018-02-25] MEDS ORDERED: Insulin NovoLIN Regular Correctional Sugar Inj ONE (06:55)
[2018-02-25] MEDS ORDERED: Metoprolol Tartrate 25 MG Tablet PO ONE (07:03)
[2018-02-25] MEDS ORDERED: Chlorhexidine Gluconate 2% 1 Pack (2 Cloths) TOPICAL ONE (07:03)
[2018-02-25] MEDS ORDERED: ceFAZolin 1 GM Premix Inj 1 GM/50 ML FROZ.PIGGY IV.SIG ONE (07:05)
--- NOTE | 2018-02-25 07:11 | P.CONOP ---
[facility] Orthopedics Consult Note - [facility] Consult date: 02/25/18 Chief complaint: Open Left Tib Fib Fracture Narrative: Husam is a 32-year-old male with a history of hypertension, hypothyroidism, and diabetes. He was participating in [employer]. Another person fell on top of his leg. He had immediate left leg pain. He was unable to stand or ambulate. He presented to the emergency room where he was found to have an open left tibial shaft fracture. He is currently awake and alert in the emergency department. His only complaint is his left leg. Pain was initially severe and intense. Pain is worse with movement. Pain is improved with rest. He denies dizziness or loss of consciousness. Review of Systems Patient denies fevers, chills, weight loss, headache, visual changes, hearing loss, chest pain, palpitations, shortness of breath, nausea, vomiting, no urinary changes, diarrhea, bowel changes, neck pain, back pain, skin rashes, weakness of extremities, easy bleeding, enlarged lymph nodes, numbness of extremities, anxiety, or depression. He complains of left leg pain Patient's social history, past medical history, and family history were reviewed on chart and with patient. FORMERLY [facility], 1928–1983 - History History Provided By: Patient - Medical History Medical History: Medical History (Last Reviewed 02/25/18 @ 07:08 by Moody Crespo MD) Diabetes HTN (hypertension) Hypothyroid - Surgical History Surgical History: Surgical History (Last Reviewed 02/25/18 @ 07:08 by Moody Crespo MD) No history of previous surgery - Family History Family History: Family History (Last Reviewed 02/25/18 @ 07:08 by Moody Crespo MD) Other Hypertension - Social History I have reviewed the patient's Social History: Yes - Tobacco History Second Hand Smoke Exposure: No Tobacco Use In Past 30 Days: No Smoking Status: Never smoker Tobacco Type: Cigarettes Packs Per Day: 1 Years Smoked: 10 - Alcohol History How Often Do You Have a Drink Containing Alcohol: 2 to 4 times a month - Substance Use History Substance History: No History of Abuse - Travel History Recent Travel in the [facility] Within the Last 8 Weeks: No Recent Travel Out of the Country Within the Last 8 Weeks: No - Immunization History Tetanus Immunization: <5 Years Medications and Allergies Active Medications: Active Medications Acetaminophen (Tylenol) 650 mg PO Q6HR PRN PRN Reason: PAIN SCALE 1 TO 2 Al Hydroxide/Mg Hydroxide (Milk Of Magnesia Liq) 30 ml PO Q12H PRN PRN Reason: Mild Constipation Amlodipine Besylate (Norvasc) 10 mg PO DAILY [facility] Bisacodyl (Dulcolax Supp) 10 mg RECTAL DAILY PRN PRN Reason: SEVERE CONSITIPATION Dextrose (D50w Vial) 50 ml IV.PUSH UNSCH PRN PRN Reason: PER HYPOGLYCEMIA PROTOCOL Doxazosin Mesylate (Cardura) 8 mg PO DAILY [facility] Enalaprilat (Vasotec Inj) 1.25 mg IV.PUSH Q6H PRN PRN Reason: SBP>160, DBP>90 Glucagon (Glucagon Inj) 1 mg OTHER PRN PRN PRN Reason: for Hypoglycemia Protocol Cefazolin Sodium/Dextrose (Ancef 2 Gm Premix Inj) 2 gm in 50 mls @ 100 mls/hr IV.SIG Q8H [facility] Stop: 02/25/18 20:29 Last Infusion: 02/25/18 06:02 Dose: Infused Sodium Chloride (Ns Inj) 1,000 mls @ 70 mls/hr IV.CONT .[id number] [facility] Last Admin: 02/25/18 02:28 Dose: 70 mls/hr Sodium Chloride (Ns Inj) 500 mls @ 30 mls/hr IV.SIG .Q10H [facility] Lactated Ringer's (Lr 1000 Ml Inj) 1,000 mls @ 30 mls/hr IV.SIG .Q24H [facility] Stop: 02/26/18 07:14 Insulin Aspart (Novolog Insulin Correctional Sugar Inj) 0 unit SQ ACHS [facility]; Protocol Insulin Detemir (Levemir Inj) 5 unit SQ BID [facility] Last Admin: 02/25/18 01:19 Dose: Not Given Lactulose (Lactulose Liq) 30 ml PO DAILY PRN PRN Reason: SEVERE CONSITIPATION Levothyroxine Sodium (Synthroid) 75 mcg PO DAILY@0600 [facility] Last Admin: 02/25/18 05:48 Dose: Not Given Levothyroxine Sodium (Synthroid) 100 mcg PO DAILY@0600 [facility] Last Admin: 02/25/18 05:48 Dose: Not Given Losartan Potassium (Cozaar) 100 mg PO DAILY [facility] Morphine Sulfate (Morphine Inj) 4 mg IV.PUSH Q3H PRN PRN Reason: PAIN 6-10;IF UNABLE TO TAKE PO Last Admin: 10/31/18 05:24 Dose: 4 mg Morphine Sulfate (Morphine Inj) 4 mg IV.PUSH Q3H PRN PRN Reason: BREAKTHROUGH PAIN Last Admin: 02/25/18 00:46 Dose: 4 mg Morphine Sulfate (Morphine Inj) 4 mg IV.PUSH Q1H PRN PRN Reason: Pain Scale 7-10 (Intractable) Naloxone HCl (Narcan Inj) 0.4 mg IV.PUSH UNSCH PRN PRN Reason: SEE LABEL COMMENTS Ondansetron HCl (Zofran Inj) 4 mg IV.PUSH Q6H PRN PRN Reason: NAUSEA OR VOMITING Oxycodone/Acetaminophen (Percocet 10/325 Mg) 1 tab PO Q6H PRN PRN Reason: PAIN SCALE 6 TO 10 Last Admin: 02/25/18 00:07 Dose: 1 tab Oxycodone/Acetaminophen (Percocet 5/325 Mg) 1 tab PO Q6H PRN PRN Reason: PAIN SCALE 3 TO 5 Sennosides (Senokot) 17.2 mg PO Q12H PRN PRN Reason: Moderate Constipation Sodium Chloride (Ns Flush) 2 ml IV.FLUSH PRN PRN PRN Reason: FLUSH AFTER USING IV ACCESS Allergies Allergy/AdvReac Type Severity Reaction Status Date / Time No Known Allergies Allergy Verified 02/24/18 19:51 Home Medications Medication Instructions Recorded Confirmed Type amlodipine 10 mg PO DAILY 02/24/18 02/24/18 History doxazosin 8 mg PO DAILY 02/24/18 02/24/18 History levothyroxine [Synthroid] 175 mcg PO DAILY 02/24/18 02/24/18 History liothyronine 25 mcg PO DAILY 02/24/18 02/24/18 History losartan 100 mg PO DAILY 02/24/18 02/24/18 History Exam Vital signs: Vital Signs 02/24/18 19:45 02/24/18 19:51 02/24/18 20:25 Temperature 98 F Pulse Rate 110 H 102 H Respiratory Rate 18 18 20 Blood Pressure 183/86 H Pulse Oximetry 99 98 100 02/24/18 21:25 02/24/18 23:42 02/25/18 00:11 Temperature 98.2 F Pulse Rate 101 H Respiratory Rate 20 18 Blood Pressure 165/72 H Pulse Oximetry 98 94 L 02/25/18 00:12 02/25/18 00:50 02/25/18 01:11 Temperature Pulse Rate Respiratory Rate 18 18 18 Blood Pressure Pulse Oximetry 02/25/18 02:01 02/25/18 03:09 02/25/18 03:32 Temperature 98.5 F Pulse Rate 116 H Respiratory Rate 18 18 18 Blood Pressure 181/85 H Pulse Oximetry 02/25/18 05:22 02/25/18 05:48 Temperature Pulse Rate 109 H Respiratory Rate 18 18 Blood Pressure 186/82 H Pulse Oximetry 96 Intake & Output 02/24/18 02/25/18 02/25/18 18:59 06:59 18:59 Intake Total 300 / 300 Output Total 1000 / 1000 Balance -700 / -700 Weight 99.79 kg Intake: IV 300 / 300 D5W/1/2NS + KCL 20 mEq Inj 1, 100 / 100 000 ML @ 50 mls/hr IV.CONT . Q20H [facility] Rx#:[id number] Gentamicin/NS 80 mg Premix 100 100 / 100 ML @ 200 mls/hr IV.SIG ONCE ONE Rx#:[id number] Ancef 2 GM Premix Inj 2 gm In 100 / 100 50 ml @ 100 mls/hr IV.SIG Q8H [facility] Rx#:[id number] Output: Urine 1000 / 1000 Other: Date of Last Bowel Movement 02/24/18 Narrative: Husam is a 32-year-old male. General: Awake and alert. No acute distress. Appears well-developed well- nourished Head: Normocephalic, atraumatic pupils are equal Neck: Soft, nontender, trachea midline Abdomen: Soft, nondistended Examination of right arm reveals no pain or deformity with shoulder, elbow, or wrist motion. Skin is intact. Radial pulse is palpable. Normal capillary refill in fingers. Sensation is intact in radial, ulnar, and median nerve distributions. Social Services Technician strength is +5. No lymphadenopathy noted. Examination of left arm reveals no pain or deformity with shoulder, elbow, or wrist motion. Skin is intact. Radial pulse is palpable. Normal capillary refill in fingers. Sensation is intact in radial, ulnar, and median nerve distributions. Social Services Technician strength is +5. No lymphadenopathy noted. Examination of left lower extremity reveals no pain or deformity around his hip or knee. He has some deformity of his mid tibia region. He has pain with ankle motion. Skin is intact. Sensation is intact in left foot. Dorsalis pedis pulse is palpable. Normal capillary refill and feet. Thigh and calf compartments are soft. No lymphadenopathy noted. Examination of right lower extremity reveals no pain or deformity with hip, knee , or ankle motion. Skin is intact. Sensation is intact in right foot. Dorsalis pedis pulse is palpable. Normal capillary refill and feet. Thigh and calf compartments are soft. No lymphadenopathy noted. +5 strength of ankle dorsiflexion and plantarflexion. Results - Labs Result Diagrams: 02/25/18 05:32 02/25/18 05:32 Labs: Laboratory Results - last 24 hr 02/24/18 02/24/18 02/24/18 20:10 20:10 20:10 WBC 7.3 RBC 4.65 Hgb 14.2 POC Hgb (Calc) Hct 41.6 POC Hct MCV 89.5 MCH 30.6 MCHC 34.2 RDW 12.9 Plt Count 191 MPV 9.5 Prelim Diff (Auto) Slide review pending Neut % (Auto) 61.7 Lymph % (Auto) 24.4 Nicholas % (Auto) 12.5 H Eos % (Auto) 0.6 Baso % (Auto) 0.8 Neut # (Auto) 4.5 Lymph # (Auto) 1.8 Nicholas # (Auto) 0.9 Eos # (Auto) 0.0 Baso # (Auto) 0.1 WBC Differential . Diff Scan Auto diff confirmed Differential Comment . Platelet Estimate Normal Platelet Morphology Normal PT 11.3 INR 1.1 APTT 17.8 L POC Sodium Sodium POC Potassium Potassium POC Chloride Chloride Carbon Dioxide Anion Gap POC BUN BUN Creatinine POC Creatinine Estimated GFR POC Glucose Random Glucose Calcium Troponin I Less than 0.02 L TSH Urine Color Urine Clarity Urine pH Ur Specific Brick Urine Protein Urine Glucose (UA) Urine Ketones Urine Occult Blood Urine Nitrate Urine Bilirubin Urine Urobilinogen Ur Leukocyte Esterase Urine RBC Urine WBC Urine Mucus Micro UA Comment Ur Microscopic Review Urine Culture Comments Blood Type Blood Type Recheck Antibody Screen 02/24/18 02/24/18 02/24/18 20:10 20:10 20:10 WBC RBC Hgb POC Hgb (Calc) 13.3 Hct POC Hct 39.0 MCV MCH MCHC RDW Plt Count MPV Prelim Diff (Auto) Neut % (Auto) Lymph % (Auto) Nicholas % (Auto) Eos % (Auto) Baso % (Auto) Neut # (Auto) Lymph # (Auto) Nicholas # (Auto) Eos # (Auto) Baso # (Auto) WBC Differential Diff Scan Differential Comment Platelet Estimate Platelet Morphology PT INR APTT POC Sodium 143 Sodium 143 POC Potassium 3.5 L Potassium 3.6 POC Chloride 102 Chloride 108 H Carbon Dioxide 25.3 Anion Gap 10 POC BUN 17 BUN 16 Creatinine 1.25 POC Creatinine 1.2 Estimated GFR 68 L POC Glucose 44 L* Random Glucose 41 L* Calcium 8.3 L Troponin I TSH 4.840 H Urine Color Urine Clarity Urine pH Ur Specific Brick Urine Protein Urine Glucose (UA) Urine Ketones Urine Occult Blood Urine Nitrate Urine Bilirubin Urine Urobilinogen Ur Leukocyte Esterase Urine RBC Urine WBC Urine Mucus Micro UA Comment Ur Microscopic Review Urine Culture Comments Blood Type A Positive Blood Type Recheck Required Antibody Screen Negative 02/24/18 02/24/18 02/25/18 20:55 21:14 00:09 WBC RBC Hgb POC Hgb (Calc) Hct POC Hct MCV MCH MCHC RDW Plt Count MPV Prelim Diff (Auto) Neut % (Auto) Lymph % (Auto) Nicholas % (Auto) Eos % (Auto) Baso % (Auto) Neut # (Auto) Lymph # (Auto) Nicholas # (Auto) Eos # (Auto) Baso # (Auto) WBC Differential Diff Scan Differential Comment Platelet Estimate Platelet Morphology PT INR APTT POC Sodium Sodium POC Potassium Potassium POC Chloride Chloride Carbon Dioxide Anion Gap POC BUN BUN Creatinine POC Creatinine Estimated GFR POC Glucose 93 91 155 H Random Glucose Calcium Troponin I TSH Urine Color Urine Clarity Urine pH Ur Specific Brick Urine Protein Urine Glucose (UA) Urine Ketones Urine Occult Blood Urine Nitrate Urine Bilirubin Urine Urobilinogen Ur Leukocyte Esterase Urine RBC Urine WBC Urine Mucus Micro UA Comment Ur Microscopic Review Urine Culture Comments Blood Type Blood Type Recheck Antibody Screen 02/25/18 02/25/18 02/25/18 01:59 05:30 05:32 WBC 10.5 RBC 4.46 L Hgb 13.9 POC Hgb (Calc) Hct 40.7 POC Hct MCV 91.3 MCH 31.2 MCHC 34.1 RDW 12.9 Plt Count 190 MPV 8.8 Prelim Diff (Auto) Neut % (Auto) 78.4 H Lymph % (Auto) 11.1 Nicholas % (Auto) 10.1 H Eos % (Auto) 0.2 Baso % (Auto) 0.2 Neut # (Auto) 8.3 H Lymph # (Auto) 1.2 Nicholas # (Auto) 1.1 H Eos # (Auto) 0.0 Baso # (Auto) 0.0 WBC Differential . Diff Scan Differential Comment Auto diff final Platelet Estimate Platelet Morphology PT INR APTT POC Sodium Sodium POC Potassium Potassium POC Chloride Chloride Carbon Dioxide Anion Gap POC BUN BUN Creatinine POC Creatinine Estimated GFR POC Glucose 251 H 368 H Random Glucose Calcium Troponin I TSH Urine Color Urine Clarity Urine pH Ur Specific Brick Urine Protein Urine Glucose (UA) Urine Ketones Urine Occult Blood Urine Nitrate Urine Bilirubin Urine Urobilinogen Ur Leukocyte Esterase Urine RBC Urine WBC Urine Mucus Micro UA Comment Ur Microscopic Review Urine Culture Comments Blood Type Blood Type Recheck Antibody Screen 02/25/18 02/25/18 02/25/18 05:32 05:35 06:49 WBC RBC Hgb POC Hgb (Calc) Hct POC Hct MCV MCH MCHC RDW Plt Count MPV Prelim Diff (Auto) Neut % (Auto) Lymph % (Auto) Nicholas % (Auto) Eos % (Auto) Baso % (Auto) Neut # (Auto) Lymph # (Auto) Nicholas # (Auto) Eos # (Auto) Baso # (Auto) WBC Differential Diff Scan Differential Comment Platelet Estimate Platelet Morphology PT INR APTT POC Sodium Sodium 134 L POC Potassium Potassium 4.7 D POC Chloride Chloride 98 D Carbon Dioxide 24.3 Anion Gap 12 POC BUN BUN 13 Creatinine 1.18 POC Creatinine Estimated GFR 72 L POC Glucose 323 H Random Glucose 365 H D Calcium 8.7 Troponin I TSH Urine Color Yellow Urine Clarity Clear Urine pH 5.0 Ur Specific Brick 1.015 Urine Protein Negative Urine Glucose (UA) 150 H Urine Ketones 20 Urine Occult Blood Negative Urine Nitrate Negative Urine Bilirubin Negative Urine Urobilinogen Less than 2 Ur Leukocyte Esterase Negative Urine RBC 2 Urine WBC 1 Urine Mucus Few H Micro UA Comment Culture not ind Ur Microscopic Review Not Reportable Urine Culture Comments Culture not ind Blood Type Blood Type Recheck Antibody Screen - Diagnostic results Imaging: Impressions Tibia/Fibula X-Ray 02/24/18 20:05 CONCLUSION: Slightly comminuted fractures of the distal shaft tibia and fibula as above with additional mildly displaced fracture of the left fibular head and neck. Chest X-Ray 02/24/18 20:06 CONCLUSION: Negative examination. Pelvis X-Ray 02/24/18 20:06 CONCLUSION: No acute bony abnormality. Tibia/Fibula X-Ray 02/24/18 21:26 CONCLUSION: Improvement in alignment at distal tibial comminuted fracture. Knee x-ray: report reviewed, image reviewed Ankle/Foot x-ray: report reviewed, image reviewed Assessment and Plan - Assessment and Plan Nate is a 32-year-old male with type 1 diabetes. He sustained an injury yesterday resulting type I open tibia fracture. He has been on antibiotics. At this point I would recommend surgery for irrigation debridement of open fracture followed by intramedullary nail fixation. The risk and benefits of surgery were discussed in depth with patient. All questions were answered. Informed consent was obtained. The risk and benefits of surgery were discussed in depth with patient. The risk of surgery include bleeding, infection, injuries to arteries, nerves, or blood vessels, infection, wound complications, nonunion, malunion, painful hardware, and need for further surgery. I also discussed medical complications including blood clots, pneumonia, stroke, heart attack, and . Informed consent was obtained and all questions were answered. N.p.o.--plan on surgery this morning Calcium and vitamin D supplementation Physical therapy consult Follow-up with Dr. Crespo in 2 weeks SCDs, SIMONA barajas, A mid-level provider in my office (nurse practitioner or physician diploma dental assistant) may see this patient on follow-up visits and continue to implement the objectives of this plan including: Starting or adjusting medications, injections , cast application, orthotics, brace application, physical therapy, radiological studies (including x-ray, MRI, CT, ultrasound, bone scan), vascular studies, neurologic studies, specialist consultation, and proceeding with surgical management, as appropriate.
[2018-02-25] MEDS ORDERED: Sod Chloride 0.9% Inj 1,000 ML IV.CONT ONE (07:18)
[2018-02-25] MEDS ORDERED: Sodium Chlor 0.9% Inj 250 ML IV.CONT ONE (07:18)
[2018-02-25] MEDS ORDERED: Metoprolol Inj 5 MG/5 ML Vial IV.PUSH ONE (07:18)
[2018-02-25] MEDS ORDERED: Phenylephrine/NS 1000 MCG/10ML Syringe IV.PUSH ONE (07:18)
[2018-02-25] MEDS ORDERED: Lidocaine PF 1% Inj 5 ML Syringe OTHER ONE (07:18)
[2018-02-25] MEDS ORDERED: Sodium Chlor 0.9% Inj 500 ML IV.SIG SCH (08:00)
[2018-02-25] MEDS ORDERED: Bisacodyl 10 MG Supp RECTAL PRN (08:36)
[2018-02-25] MEDS ORDERED: Post-op Orders (for Pharmacy) OTHER STA (08:36)
--- NOTE | 2018-02-25 08:47 | P.OP ---
- Preoperative Diagnosis (1) Open fracture of left fibula and tibia Date of procedure: 02/25/18 Procedure: Left tibia irrigation and debridement, left tibia reduction and intramedullary fixation, application of wound VAC dressing Anesthesia: GETA Surgeon: Moody Crespo MD Medical Office Technology Instructor: RUDY Foote PA-C The surgical procedure was assisted by my physician observation assistant. My P.A. presence was necessary throughout this case for the manipulation and positioning of the surgical extremity. My P.A. was assisting me throughout the duration of this procedure. The skill set of a physician observation assistant was medically necessary to complete this procedure. During the surgical case the surgical rn was working at the back table and the physician observation assistant was directly assisting me. Operation and Findings: Implants: ITS [9]mm x [360]mm tibial nail Plan of activity: 50% weightbearing left leg times 4 weeks Details of procedure: Patient was seen and examined preoperatively. An informed consent was obtained from patient after detailed discussion of risk and benefits. Risks of surgery include bleeding, infection, painful hardware, nonunion, malunion, leg length discrepancy, need for hardware removal, and medical complications associated with anesthesia including blood clots, stroke, heart attack, and were discussed. Operative site was marked. Patient was brought to the operating room placed on or table. Patient received IV antibiotics and was given IV sedation GETA. Operative leg was prepped with alcohol Hibiclens and draped in usual sterile fashion. Timeout procedure was performed Procedure began with irrigation and debridement of open fracture. The traumatic laceration was extended proximally and distally. An excisional debridement was performed. Overall the wound appeared to be clean. Curettes and rongours were used to debride bone. Soft tissue and bone were now thoroughly irrigated with pulsatile lavage. Next, attention was turned towards reduction of fracture. A percutaneous clamp was placed around fracture site. Traction was applied. Fracture was reduced. There was comminution of the fracture. The fracture reduced and excellent alignment was achieved. Fracture clamp was used to aid in reduction. Next a 3 cm incision was made proximal to the patella. Quadriceps tendon was split in line with fibers. Cannulas were placed in the patellofemoral joint to protect the articular surface at all times. A guidepin was placed into the tibia and advanced in the tibial canal. Fluoroscopy was used to confirm appropriate guidepin placement. An opening reamer was used to open the tibial canal. A ball-tipped guidewire was advanced down the tibial canal. Guidepin was passed across the fracture site into the center of the distal tibia. Fluoroscopy confirmed guidepin placement. The nail length was now measured. The fracture was now held in a reduced position and the canal was reamed. The canal was reamed up to appropriate size. A tibia nail was now selected. Next the nail was fully seated. Using perfect the [place] technique 2 distal interlocking screws were placed. Using the insertion handle as a guide 1 proximal interlocking screw was placed. Fluoroscopy confirmed excellent of fracture with well-placed hardware. Incisions and the knee joint were thoroughly irrigated with sterile saline. Fascia was closed with #1 Vicryl, subcutaneous tissues closed with 3-0 Vicryl and skin was closed with dianne. The traumatic laceration was closed with 3-0 PDS and 3-0 nylon. Because this skin was traumatized around the open fracture, an incisional wound VAC dressing was applied. VAC dressing was sealed appropriately. Sterile dressings were applied. Patient was awakened and transferred to recovery in stable condition.
[2018-02-25] MEDS ORDERED: fentaNYL Citrate Inj 100 MCG/2 ML Ampul ONE (08:57)
[2018-02-25] MEDS ORDERED: Senna/Docusate Sodium 8.6/50 MG Tablet PO SCH (09:00)
[2018-02-25] MEDS ORDERED: *morphine SULFATE 4 MG/ML PERIprocedure ONLY ONE ×3 (09:02→09:40)
[2018-02-25] MEDS: Insulin NovoLOG Aspart Correctional Sugar Inj SQ SCH ×4 (09:17→22:47)
--- NOTE | 2018-02-25 09:34 | XR ---
EXAM DATE: 02/25/2018 8:48 AM EDT AGE/SEX: 32 years / Male INDICATIONS: Post-op ORIF left tibia. CLINICAL DATA: This is the patient's subsequent encounter. Patient reports that signs and symptoms h ave been present for 2 days and indicates a pain score of Nonresponsive. MEDICAL/SURGICAL HISTORY: Non-responsive. Non-responsive. COMPARISON: [facility] [place] [facility] [place]IBIA FIBULA LEFT 2V, 02/24/2018. . FINDINGS: Multiple coned-down views of the tibia and fibula were obtained and demonstrate interval placement of an intramedullary enrique with locking screws transfixing the mid tibial fracture. The fracture fragment s are now in anatomic alignment. The mid fibular fracture is again identified with only minimal displ acement. CONCLUSION: Status post open rigid internal fixation. Electronically signed by: Abhi Gleason MD 02/25/2018 9:33 AM EDT
[2018-02-25] MEDS ORDERED: *HYDROmorphone PF Inj 1 MG/ML Ampul PERIprocedural Use ONLY ONE ×2 (09:58→10:25)
[2018-02-25] MEDS: Doxazosin 4 MG Tablet PO SCH (12:02)
[2018-02-25] MEDS: amLODIPine 10 MG Tablet PO SCH (12:06)
[2018-02-25] MEDS: Calcium/Vitamin D 250/125 MG Tablet PO SCH ×3 (12:06→17:49)
[2018-02-25] MEDS: ceFAZolin Inj 2,000 MG in Sodium Chlor 0.9% Inj 80 ML IV.SIG SCH ×2 (14:12→22:46)
[2018-02-25] MEDS: Gentamicin/NS 80 mg Premix 100 ML IV.SIG SCH ×2 (15:37→22:45)
--- NOTE | 2018-02-25 16:07 | P.PN ---
Subjective Interval history: Follow-up for left tib-fib fracture, type 1 diabetes, hypertension. Patient is seen after surgery. Reports his left leg pain is about a 67/10, but does get relief with pain medications. He has tolerated oral intake post surgery. He denies any nausea or vomiting. Has not had a bowel movement since prior to his arrival. He has no other medical complaints including no chest pain or shortness of breath. He states he was diagnosed with type I diabetes 22 years ago. He states his blood sugars are fairly well controlled with his insulin pump. He has now started using his insulin pump while in the hospital. Physical Exam Vital signs: Vital Signs 02/24/18 19:45 02/24/18 19:51 02/24/18 20:25 Temperature 98 F Pulse Rate 110 H 102 H Respiratory Rate 18 18 20 Blood Pressure 183/86 H Pulse Oximetry 99 98 100 02/24/18 21:25 02/24/18 23:42 02/25/18 00:11 Temperature 98.2 F Pulse Rate 101 H Respiratory Rate 20 18 Blood Pressure 165/72 H Pulse Oximetry 98 94 L 02/25/18 00:12 02/25/18 00:50 02/25/18 01:11 Temperature Pulse Rate Respiratory Rate 18 18 18 Blood Pressure Pulse Oximetry 02/25/18 02:01 02/25/18 03:09 02/25/18 03:32 Temperature 98.5 F Pulse Rate 116 H Respiratory Rate 18 18 18 Blood Pressure 181/85 H Pulse Oximetry 02/25/18 05:22 02/25/18 05:48 02/25/18 08:52 Temperature 98.1 F Pulse Rate 109 H 104 H Respiratory Rate 18 18 18 Blood Pressure 186/82 H 155/67 H Pulse Oximetry 96 100 02/25/18 09:15 02/25/18 09:30 02/25/18 11:00 Temperature Pulse Rate 101 H 100 H 110 H Respiratory Rate 18 18 15 Blood Pressure 163/74 H 164/72 H 139/66 Pulse Oximetry 99 99 98 02/25/18 12:00 02/25/18 12:40 02/25/18 13:13 Temperature 97.9 F 98.2 F Pulse Rate 119 H 113 H Respiratory Rate 15 5 L 18 Blood Pressure 146/77 H 146/70 H Pulse Oximetry 98 98 02/25/18 13:44 02/25/18 14:02 02/25/18 15:39 Temperature Pulse Rate Respiratory Rate 18 18 Blood Pressure Pulse Oximetry 98 Intake & Output 02/24/18 02/25/18 02/25/18 18:59 06:59 18:59 Intake Total 300 / 300 1840 / 1840 Output Total 1000 / 1000 1650 / 1650 Balance -700 / -700 190 / 190 Weight 99.79 kg 99.79 kg Intake: IV 300 / 300 100 / 100 D5W/1/2NS + KCL 20 mEq Inj 1, 100 / 100 000 ML @ 50 mls/hr IV.CONT . Q20H JENNIFER Rx#:[id number] Gentamicin/NS 80 mg Premix 100 100 / 100 ML @ 200 mls/hr IV.SIG ONCE ONE Rx#:[id number] Ancef 2 GM Premix Inj 2 gm In 100 / 100 50 ml @ 100 mls/hr IV.SIG Q8H JENNIFER Rx#:[id number] Ancef Inj 2,000 MG In NS Inj 80 100 / 100 ML @ 200 mls/hr IV.SIG Q8H JENNIFER Rx#:[id number] Oral 240 / 240 Anesthesia Amount 1500 / 1500 Output: Urine 1000 / 1000 900 / 900 Emesis 700 / 700 Estimated Blood Loss 50 / 50 Other: Mode Setting Left Leg Continuous Date of Last Bowel Movement 02/24/18 Weight On Admission 99.79 kg Narrative: GENERAL: Well-nourished, well-developed very pleasant young male patient in [facility]. SKIN: Warm and dry. No rash. HEENT: Normocephalic. Atraumatic. Pupils equal and round. Mucous membranes pink and moist. CARDIOVASCULAR: Regular rate and rhythm. 1/6 systolic murmur. RESPIRATORY: No accessory muscle use. Clear to auscultation. Breath sounds equal bilaterally. GASTROINTESTINAL: Abdomen soft, non-tender, nondistended. Normoactive bowel sounds x4. MUSCULOSKELETAL: No obvious deformities. Left lower extremity in surgical splint/dressing, CDI. 2+ bilateral dorsalis pedis pulses with brisk capillary refill bilaterally. NEUROLOGICAL: Awake and alert. No obvious cranial nerve deficits. Motor grossly within normal limits. Moving all extremities spontaneously. Normal speech. PSYCHIATRIC: Appropriate mood and affect; insight and judgment normal. Results - Labs CBC & Chem 7: 02/25/18 05:32 02/25/18 05:32 Laboratory Results - last 24 hr 02/24/18 02/24/18 02/24/18 20:10 20:10 20:10 WBC 7.3 RBC 4.65 Hgb 14.2 POC Hgb (Calc) Hct 41.6 POC Hct MCV 89.5 MCH 30.6 MCHC 34.2 RDW 12.9 Plt Count 191 MPV 9.5 Prelim Diff (Auto) Slide review pending Neut % (Auto) 61.7 Lymph % (Auto) 24.4 [place] % (Auto) 12.5 H Eos % (Auto) 0.6 Baso % (Auto) 0.8 Neut # (Auto) 4.5 Lymph # (Auto) 1.8 [place] # (Auto) 0.9 Eos # (Auto) 0.0 Baso # (Auto) 0.1 WBC Differential . Diff Scan Auto diff confirmed Differential Comment . Platelet Estimate Normal Platelet Morphology Normal PT 11.3 INR 1.1 APTT 17.8 L POC Sodium Sodium POC Potassium Potassium POC Chloride Chloride Carbon Dioxide Anion Gap POC BUN BUN Creatinine POC Creatinine Estimated GFR POC Glucose Random Glucose Calcium Troponin I Less than 0.02 L TSH Urine Color Urine Clarity Urine pH Ur Specific [place] Urine Protein Urine Glucose (UA) Urine Ketones Urine Occult Blood Urine Nitrate Urine Bilirubin Urine Urobilinogen Ur Leukocyte Esterase Urine RBC Urine WBC Urine Mucus Micro UA Comment Ur Microscopic Review Urine Culture Comments Blood Type Blood Type Recheck Antibody Screen 02/24/18 02/24/18 02/24/18 20:10 20:10 20:10 WBC RBC Hgb POC Hgb (Calc) 13.3 Hct POC Hct 39.0 MCV MCH MCHC RDW Plt Count MPV Prelim Diff (Auto) Neut % (Auto) Lymph % (Auto) [place] % (Auto) Eos % (Auto) Baso % (Auto) Neut # (Auto) Lymph # (Auto) [place] # (Auto) Eos # (Auto) Baso # (Auto) WBC Differential Diff Scan Differential Comment Platelet Estimate Platelet Morphology PT INR APTT POC Sodium 143 Sodium 143 POC Potassium 3.5 L Potassium 3.6 POC Chloride 102 Chloride 108 H Carbon Dioxide 25.3 Anion Gap 10 POC BUN 17 BUN 16 Creatinine 1.25 POC Creatinine 1.2 Estimated GFR 68 L POC Glucose 44 L* Random Glucose 41 L* Calcium 8.3 L Troponin I TSH 4.840 H Urine Color Urine Clarity Urine pH Ur Specific [place] Urine Protein Urine Glucose (UA) Urine Ketones Urine Occult Blood Urine Nitrate Urine Bilirubin Urine Urobilinogen Ur Leukocyte Esterase Urine RBC Urine WBC Urine Mucus Micro UA Comment Ur Microscopic Review Urine Culture Comments Blood Type A Positive Blood Type Recheck Required Antibody Screen Negative 02/24/18 02/24/18 02/25/18 20:55 21:14 00:09 WBC RBC Hgb POC Hgb (Calc) Hct POC Hct MCV MCH MCHC RDW Plt Count MPV Prelim Diff (Auto) Neut % (Auto) Lymph % (Auto) [place] % (Auto) Eos % (Auto) Baso % (Auto) Neut # (Auto) Lymph # (Auto) [place] # (Auto) Eos # (Auto) Baso # (Auto) WBC Differential Diff Scan Differential Comment Platelet Estimate Platelet Morphology PT INR APTT POC Sodium Sodium POC Potassium Potassium POC Chloride Chloride Carbon Dioxide Anion Gap POC BUN BUN Creatinine POC Creatinine Estimated GFR POC Glucose 93 91 155 H Random Glucose Calcium Troponin I TSH Urine Color Urine Clarity Urine pH Ur Specific [place] Urine Protein Urine Glucose (UA) Urine Ketones Urine Occult Blood Urine Nitrate Urine Bilirubin Urine Urobilinogen Ur Leukocyte Esterase Urine RBC Urine WBC Urine Mucus Micro UA Comment Ur Microscopic Review Urine Culture Comments Blood Type Blood Type Recheck Antibody Screen 02/25/18 02/25/18 02/25/18 01:59 05:30 05:32 WBC 10.5 RBC 4.46 L Hgb 13.9 POC Hgb (Calc) Hct 40.7 POC Hct MCV 91.3 MCH 31.2 MCHC 34.1 RDW 12.9 Plt Count 190 MPV 8.8 Prelim Diff (Auto) Neut % (Auto) 78.4 H Lymph % (Auto) 11.1 [place] % (Auto) 10.1 H Eos % (Auto) 0.2 Baso % (Auto) 0.2 Neut # (Auto) 8.3 H Lymph # (Auto) 1.2 [place] # (Auto) 1.1 H Eos # (Auto) 0.0 Baso # (Auto) 0.0 WBC Differential . Diff Scan Differential Comment Auto diff final Platelet Estimate Platelet Morphology PT INR APTT POC Sodium Sodium POC Potassium Potassium POC Chloride Chloride Carbon Dioxide Anion Gap POC BUN BUN Creatinine POC Creatinine Estimated GFR POC Glucose 251 H 368 H Random Glucose Calcium Troponin I TSH Urine Color Urine Clarity Urine pH Ur Specific [place] Urine Protein Urine Glucose (UA) Urine Ketones Urine Occult Blood Urine Nitrate Urine Bilirubin Urine Urobilinogen Ur Leukocyte Esterase Urine RBC Urine WBC Urine Mucus Micro UA Comment Ur Microscopic Review Urine Culture Comments Blood Type Blood Type Recheck Antibody Screen 02/25/18 02/25/18 02/25/18 05:32 05:35 06:49 WBC RBC Hgb POC Hgb (Calc) Hct POC Hct MCV MCH MCHC RDW Plt Count MPV Prelim Diff (Auto) Neut % (Auto) Lymph % (Auto) [place] % (Auto) Eos % (Auto) Baso % (Auto) Neut # (Auto) Lymph # (Auto) [place] # (Auto) Eos # (Auto) Baso # (Auto) WBC Differential Diff Scan Differential Comment Platelet Estimate Platelet Morphology PT INR APTT POC Sodium Sodium 134 L POC Potassium Potassium 4.7 D POC Chloride Chloride 98 D Carbon Dioxide 24.3 Anion Gap 12 POC BUN BUN 13 Creatinine 1.18 POC Creatinine Estimated GFR 72 L POC Glucose 323 H Random Glucose 365 H D Calcium 8.7 Troponin I TSH Urine Color Yellow Urine Clarity Clear Urine pH 5.0 Ur Specific [place] 1.015 Urine Protein Negative Urine Glucose (UA) 150 H Urine Ketones 20 Urine Occult Blood Negative Urine Nitrate Negative Urine Bilirubin Negative Urine Urobilinogen Less than 2 Ur Leukocyte Esterase Negative Urine RBC 2 Urine WBC 1 Urine Mucus Few H Micro UA Comment Culture not ind Ur Microscopic Review Not Reportable Urine Culture Comments Culture not ind Blood Type Blood Type Recheck Antibody Screen 02/25/18 02/25/18 02/25/18 08:57 09:53 11:08 WBC RBC Hgb POC Hgb (Calc) Hct POC Hct MCV MCH MCHC RDW Plt Count MPV Prelim Diff (Auto) Neut % (Auto) Lymph % (Auto) [place] % (Auto) Eos % (Auto) Baso % (Auto) Neut # (Auto) Lymph # (Auto) [place] # (Auto) Eos # (Auto) Baso # (Auto) WBC Differential Diff Scan Differential Comment Platelet Estimate Platelet Morphology PT INR APTT POC Sodium Sodium POC Potassium Potassium POC Chloride Chloride Carbon Dioxide Anion Gap POC BUN BUN Creatinine POC Creatinine Estimated GFR POC Glucose 289 H 339 H 282 H Random Glucose Calcium Troponin I TSH Urine Color Urine Clarity Urine pH Ur Specific [place] Urine Protein Urine Glucose (UA) Urine Ketones Urine Occult Blood Urine Nitrate Urine Bilirubin Urine Urobilinogen Ur Leukocyte Esterase Urine RBC Urine WBC Urine Mucus Micro UA Comment Ur Microscopic Review Urine Culture Comments Blood Type Blood Type Recheck Antibody Screen 02/25/18 02/25/18 11:56 12:54 WBC RBC Hgb POC Hgb (Calc) Hct POC Hct MCV MCH MCHC RDW Plt Count MPV Prelim Diff (Auto) Neut % (Auto) Lymph % (Auto) [place] % (Auto) Eos % (Auto) Baso % (Auto) Neut # (Auto) Lymph # (Auto) [place] # (Auto) Eos # (Auto) Baso # (Auto) WBC Differential Diff Scan Differential Comment Platelet Estimate Platelet Morphology PT INR APTT POC Sodium Sodium POC Potassium Potassium POC Chloride Chloride Carbon Dioxide Anion Gap POC BUN BUN Creatinine POC Creatinine Estimated GFR POC Glucose 264 H 267 H Random Glucose Calcium Troponin I TSH Urine Color Urine Clarity Urine pH Ur Specific [place] Urine Protein Urine Glucose (UA) Urine Ketones Urine Occult Blood Urine Nitrate Urine Bilirubin Urine Urobilinogen Ur Leukocyte Esterase Urine RBC Urine WBC Urine Mucus Micro UA Comment Ur Microscopic Review Urine Culture Comments Blood Type Blood Type Recheck Antibody Screen - Imaging Impressions Tibia/Fibula X-Ray 02/24/18 20:05 CONCLUSION: Slightly comminuted fractures of the distal shaft tibia and fibula as above with additional mildly displaced fracture of the left fibular head and neck. Chest X-Ray 02/24/18 20:06 CONCLUSION: Negative examination. Pelvis X-Ray 02/24/18 20:06 CONCLUSION: No acute bony abnormality. Tibia/Fibula X-Ray 02/24/18 21:26 CONCLUSION: Improvement in alignment at distal tibial comminuted fracture. Tibia/Fibula X-Ray 02/25/18 00:00 CONCLUSION: Status post open rigid internal fixation. - Procedures 02/25/18Dr. Westfall performed: Left tibia irrigation and debridement, left tibia reduction and intramedullary fixation, application of wound VAC dressing Assessment and Plan - Plan 32yo male patient with PMHX of DM, HTN and hypothyroidism who was in his normal state of health until he injured his left leg while participating in a Judo sparring match. Open left comminuted fracture distal tibia and fibula: acute. -Left Tib/Fib Xray reviewed, shows Slightly comminuted fractures of the distal shaft tibia and fibula as above with additional mildly displaced fracture of the left fibular head and neck. -Tetanus vaccine updated in ER. -Continue on IV Ancef -Ortho consulted, seen by Dr. Westfall -10/31 s/p Left tibia I&D, reduction and intramedullary fixation, application of wound VAC dressing -Continue pain control with percocet prn, IV morphine prn, with Bowel regimen -DVT prophylaxis with Lovenox per ortho -PT consulted, 50lbs weight bearing LLE per ortho Hypertension: uncontrolled, suspect secondary to LLE pain from open fracture injury -Resume on home dose of amlodipine, Cozaar, and Cardura -Continue to monitor BP and adjust treatment accordingly Type I Diabetes: chronic, diagnosed at age 10. Has insulin pump. -hypoglycemic at ED presentation, blood sugar 44, given 1 amp D50 -Monitor accu-checks -Continue patient's insulin pump with basal 2u/hr and he boluses on sliding scale. -hypoglycemia protocol Hypothyroidism -Resume on home dose of levothyroxine 175mcg daily DVT prophylaxis: Lovenox, per ortho
[2018-02-25] MEDS: Enoxaparin Inj 40 MG/0.4 ML Syringe SQ SCH (17:49)
[2018-02-25] MEDS: Senna/Docusate Sodium 8.6/50 MG Tablet PO SCH (22:46)
[2018-02-26] MEDS: oxyCODONE/Acetaminophen 10/325 Tablet PO PRN ×2 (02:57→08:32)
[2018-02-26] MEDS: Levothyroxine 100 MCG Tablet PO SCH (05:54)
[2018-02-26] MEDS: Morphine Inj 4 MG/ML Vial IV.PUSH PRN ×5 (05:55→22:17)
[2018-02-26] MEDS: Levothyroxine 75 MCG Tablet PO SCH (05:55)
[2018-02-26] MEDS ORDERED: Levothyroxine 75 MCG Tablet PO SCH (06:00)
[2018-02-26] MEDS ORDERED: Levothyroxine 100 MCG Tablet PO SCH (06:00)
[2018-02-26] MEDS ORDERED: Levothyroxine 150 MCG Tablet PO SCH (06:00)
[2018-02-26] MEDS: Gentamicin/NS 80 mg Premix 100 ML IV.SIG SCH ×3 (06:23→22:16)
[2018-02-26] MEDS: ceFAZolin Inj 2,000 MG in Sodium Chlor 0.9% Inj 80 ML IV.SIG SCH ×3 (06:23→22:16)
--- NOTE | 2018-02-26 06:34 | P.PNOP ---
Subjective Interval history: POD 1 s/p I&D with IMN left tibia doing well. pain controlled. out of bed yesterday with therapy. Physical Exam Vital signs: Vital Signs 02/25/18 08:52 02/25/18 09:15 02/25/18 09:30 Temperature 98.1 F Pulse Rate 104 H 101 H 100 H Respiratory Rate 18 18 18 Blood Pressure 155/67 H 163/74 H 164/72 H Pulse Oximetry 100 99 99 02/25/18 11:00 02/25/18 12:00 02/25/18 12:40 Temperature 97.9 F Pulse Rate 110 H 119 H Respiratory Rate 15 15 5 L Blood Pressure 139/66 146/77 H Pulse Oximetry 98 98 02/25/18 13:13 02/25/18 13:44 02/25/18 14:02 Temperature 98.2 F Pulse Rate 113 H Respiratory Rate 18 18 Blood Pressure 146/70 H Pulse Oximetry 98 98 02/25/18 15:39 02/25/18 16:00 02/25/18 20:00 Temperature 97.6 F 98.7 F Pulse Rate 110 H 98 H Respiratory Rate 18 18 16 Blood Pressure 149/64 H 122/55 L Pulse Oximetry 97 97 02/26/18 00:00 Temperature 98.4 F Pulse Rate 85 Respiratory Rate 16 Blood Pressure 131/61 Pulse Oximetry 97 Intake & Output 02/25/18 02/25/18 02/26/18 06:59 18:59 06:59 Intake Total 300 / 300 2420 / 2420 200 / 200 Output Total 1000 / 1000 2350 / 2350 730 / 730 Balance -700 / -700 70 / 70 -530 / -530 Weight 99.79 kg 99.79 kg 107 kg Intake: IV 300 / 300 200 / 200 200 / 200 D5W/1/2NS + KCL 20 mEq Inj 1, 100 / 100 000 ML @ 50 mls/hr IV.CONT . Q20H JENNIFER Rx#:[id number] Gentamicin/NS 80 mg Premix 100 100 / 100 100 / 100 100 / 100 ML @ 200 mls/hr IV.SIG Q8H JENNIFER Rx#:[id number] Ancef 2 GM Premix Inj 2 gm In 100 / 100 50 ml @ 100 mls/hr IV.SIG Q8H JENNIFER Rx#:[id number] Ancef Inj 2,000 MG In NS Inj 80 100 / 100 100 / 100 ML @ 200 mls/hr IV.SIG Q8H JENNIFER Rx#:[id number] Oral 720 / 720 Anesthesia Amount 1500 / 1500 Output: Urine 1000 / 1000 1500 / 1500 700 / 700 Emesis 700 / 700 Estimated Blood Loss 50 / 50 Wound Vac Amount 100 / 100 30 / 30 Left Leg 100 / 100 30 / 30 Other: Mode Setting Left Leg Continuous Continuous Date of Last Bowel Movement 02/24/18 02/24/18 02/24/18 # Bowel Movements 0 Weight On Admission 99.79 kg Narrative: LLE: dressings clean and dry. intact. NVI. compartments soft. +vac. good seal. Results - Labs CBC & Chem 7: 02/25/18 05:32 02/25/18 05:32 Laboratory Results - last 24 hr 02/25/18 02/25/18 02/25/18 05:32 06:49 08:57 Sodium 134 L Potassium 4.7 D Chloride 98 D Carbon Dioxide 24.3 Anion Gap 12 BUN 13 Creatinine 1.18 Estimated GFR 72 L POC Glucose 323 H 289 H Random Glucose 365 H D Calcium 8.7 02/25/18 02/25/18 02/25/18 09:53 11:08 11:56 Sodium Potassium Chloride Carbon Dioxide Anion Gap BUN Creatinine Estimated GFR POC Glucose 339 H 282 H 264 H Random Glucose Calcium 02/25/18 02/25/18 02/25/18 12:54 17:02 21:21 Sodium Potassium Chloride Carbon Dioxide Anion Gap BUN Creatinine Estimated GFR POC Glucose 267 H 173 H 240 H Random Glucose Calcium - Imaging Impressions Tibia/Fibula X-Ray 02/25/18 00:00 CONCLUSION: Status post open rigid internal fixation. - Procedures 02/25/18Dr. Westfall performed: Left tibia irrigation and debridement, left tibia reduction and intramedullary fixation, application of wound VAC dressing Assessment and Plan - Assessment and Plan 1) Left Open Tibia Shaft Fx s/p I&D with IMN and incisional Vac - POD 1 -PWB up to 50lbs -maintain incisional vac: 125mmHg, continuous -daily dressing changes POD 2 -plan for DC home with portable incisional vac tomorrow morning once IV Abx are completed -will follow up with Khoi or RIVAS on friday in office for planned removal of incisional vac. -I vac rep has been contacted and is aware. should be arranging home vac today. -DVT prophylaxis -scripts on chart [id number] Prescription Drug Monitoring Database has been queried and verified prior to prescribing the controlled substance. Acute pain exception. This patient has normal, predicted, physiological, and time limited response to an adverse mechanical stimulus associated with surgery, trauma, or acute illness as described in my notes. There is a lack of alternative treatment options other than to include the prescribed narcotic treatment for this condition.
[2018-02-26 06:54] LABS: Baso % (Auto) 0.2 % (0.0-2.0); Eos % (Auto) 0.4 % (0.0-4.0); Hematocrit 35.8 % (39.0-51.0); Hemoglobin 12.4 gm/dL (13.0-17.0); Lymph # (Auto) 2.1 th/mm3 (1.0-4.8); Lymph % (Auto) 22.4 % (9.0-44.0); Mean Corpuscular HGB Conc 34.5 % (32.0-36.0); Mean Corpuscular Hemoglobin 31.1 pg (27.0-34.0); Mean Platelet Volume 8.6 fL (7.0-11.0); Mono # (Auto) 1.2 th/mm3 (0.0-0.9); Mono % (Auto) 13.3 % (0.0-8.0); Neut # (Auto) 5.9 th/mm3 (1.8-7.7); Neut % (Auto) 63.7 % (16.0-70.0); Platelet Count 194 th/mm3 (150-450); Red Blood Count 3.98 mil/mm3 (4.50-5.90); Red Cell Distribution Width 12.8 % (11.6-17.2); White Blood Count 9.3 th/mm3 (4.0-11.0)
[2018-02-26 07:22] LABS: Calcium 8.4 mg/dL (8.5-10.1); Carbon Dioxide 30.1 meq/L (21.0-32.0); Potassium 3.7 meq/L (3.5-5.1)
[2018-02-26] MEDS: Doxazosin 4 MG Tablet PO SCH (08:33)
[2018-02-26] MEDS: Senna/Docusate Sodium 8.6/50 MG Tablet PO SCH ×2 (08:34→20:14)
[2018-02-26] MEDS: Calcium/Vitamin D 250/125 MG Tablet PO SCH ×3 (08:34→18:14)
[2018-02-26] MEDS: Enoxaparin Inj 40 MG/0.4 ML Syringe SQ SCH (08:37)
[2018-02-26] MEDS: amLODIPine 10 MG Tablet PO SCH (08:41)
[2018-02-26] MEDS: Insulin NovoLOG Aspart Correctional Sugar Inj SQ SCH (08:43)
[2018-02-26] MEDS ORDERED: Influenza (Quadrivalent) Vaccine 0.5 ML Syringe IM ONE (09:00)
[2018-02-26] MEDS ORDERED: Temazepam 15 MG Capsule PO PRN (10:12)
[2018-02-26] MEDS: Acetaminophen 325 MG Tablet PO PRN ×2 (11:18→20:15)
--- NOTE | 2018-02-26 15:41 | P.PN ---
Subjective Interval history: Follow-up for left tib-fib fracture, type 1 diabetes, hypertension. Patient is currently resting in bed. He reports moderate amount of pain from his left leg. Denies any chest pain, shortness of breath, fever or chills. He could not sleep much last night because of pain. Physical Exam Vital signs: Vital Signs 02/25/18 15:39 02/25/18 16:00 02/25/18 20:00 Temperature 97.6 F 98.7 F Pulse Rate 110 H 98 H Respiratory Rate 18 18 16 Blood Pressure 149/64 H 122/55 L Pulse Oximetry 97 97 02/26/18 00:00 02/26/18 08:00 02/26/18 09:02 Temperature 98.4 F 98.2 F Pulse Rate 85 97 H Respiratory Rate 16 19 18 Blood Pressure 131/61 161/76 H Pulse Oximetry 97 96 02/26/18 09:03 02/26/18 11:48 02/26/18 12:00 Temperature 97.5 F L Pulse Rate 108 H Respiratory Rate 18 18 18 Blood Pressure 142/65 H Pulse Oximetry 96 02/26/18 12:52 02/26/18 14:33 Temperature Pulse Rate Respiratory Rate 18 18 Blood Pressure Pulse Oximetry Intake & Output 02/25/18 02/26/18 02/26/18 18:59 06:59 18:59 Intake Total 2420 / 2420 1400 / 1400 100 / 100 Output Total 2350 / 2350 730 / 730 Balance 70 / 70 670 / 670 100 / 100 Weight 99.79 kg 107 kg Intake: IV 200 / 200 1400 / 1400 100 / 100 LR 1000 mL Inj 1,000 ML @ 80 1000 / 1000 mls/hr IV.CONT .[id number] JENNIFER Rx# :[id number] Gentamicin/NS 80 mg Premix 100 100 / 100 200 / 200 100 / 100 ML @ 200 mls/hr IV.SIG Q8H JENNIFER Rx#:[id number] Ancef Inj 2,000 MG In NS Inj 80 100 / 100 200 / 200 ML @ 200 mls/hr IV.SIG Q8H JENNIFER Rx#:[id number] Oral 720 / 720 Anesthesia Amount 1500 / 1500 Output: Urine 1500 / 1500 700 / 700 Emesis 700 / 700 Estimated Blood Loss 50 / 50 Wound Vac Amount 100 / 100 30 / 30 Left Leg 100 / 100 30 / 30 Other: Mode Setting Left Leg Continuous Continuous Continuous Date of Last Bowel Movement 02/24/18 02/24/18 02/24/18 # Bowel Movements 0 Weight On Admission 99.79 kg Narrative: GENERAL: Alert, NAD. SKIN: Warm and dry. HEAD: Normocephalic. EYES: No scleral icterus. No injection or drainage. NECK: Supple, trachea midline. No JVD or lymphadenopathy. CARDIOVASCULAR: Regular rhythm, tachycardic without murmurs, gallops, or rubs. RESPIRATORY: Breath sounds equal bilaterally. No accessory muscle use. GASTROINTESTINAL: Abdomen soft, non-tender, nondistended. MUSCULOSKELETAL: No cyanosis, or edema. Left tibial I&D, reduction, IM fixation. Wrapped. BACK: Nontender without obvious deformity. No CVA tenderness. Results - Labs CBC & Chem 7: 02/26/18 05:42 02/26/18 05:42 Laboratory Results - last 24 hr 02/25/18 02/25/18 02/26/18 17:02 21:21 05:42 WBC 9.3 RBC 3.98 L Hgb 12.4 L Hct 35.8 L MCV 90.0 MCH 31.1 MCHC 34.5 RDW 12.8 Plt Count 194 MPV 8.6 Neut % (Auto) 63.7 Lymph % (Auto) 22.4 [place] % (Auto) 13.3 H Eos % (Auto) 0.4 Baso % (Auto) 0.2 Neut # (Auto) 5.9 Lymph # (Auto) 2.1 [place] # (Auto) 1.2 H Eos # (Auto) 0.0 Baso # (Auto) 0.0 WBC Differential . Differential Comment Auto diff final Sodium Potassium Chloride Carbon Dioxide Anion Gap BUN Creatinine Estimated GFR POC Glucose 173 H 240 H Random Glucose Calcium 02/26/18 02/26/18 02/26/18 05:42 08:42 12:30 WBC RBC Hgb Hct MCV MCH MCHC RDW Plt Count MPV Neut % (Auto) Lymph % (Auto) [place] % (Auto) Eos % (Auto) Baso % (Auto) Neut # (Auto) Lymph # (Auto) [place] # (Auto) Eos # (Auto) Baso # (Auto) WBC Differential Differential Comment Sodium 140 Potassium 3.7 D Chloride 102 Carbon Dioxide 30.1 Anion Gap 8 BUN 12 Creatinine 1.09 Estimated GFR 79 L POC Glucose 148 H 149 H Random Glucose 90 D Calcium 8.4 L - Procedures 02/25/18Dr. Westfall performed: Left tibia irrigation and debridement, left tibia reduction and intramedullary fixation, application of wound VAC dressing Assessment and Plan - Plan 32yo male patient with PMHX of DM, HTN and hypothyroidism who was in his normal state of health until he injured his left leg while participating in a Judo sparring match. Open left comminuted fracture distal tibia and fibula: acute. -Left Tib/Fib Xray reviewed, shows Slightly comminuted fractures of the distal shaft tibia and fibula as above with additional mildly displaced fracture of the left fibular head and neck. -Tetanus vaccine updated in ER. -Continue on IV Ancef -Ortho consulted, seen by Dr. Westfall -02/25 s/p Left tibia I&D, reduction and intramedullary fixation, application of wound VAC dressing -Continue pain control with percocet prn, IV morphine prn, with Bowel regimen -DVT prophylaxis with Lovenox per ortho -PT consulted, 50lbs weight bearing LLE per ortho Hypertension: uncontrolled, suspect secondary to LLE pain from open fracture injury -Resume on home dose of amlodipine, Cozaar, and Cardura -Continue to monitor BP and adjust treatment accordingly Type I Diabetes: chronic, diagnosed at age 10. Has insulin pump. -Patient will start using his insulin pump. We will d/c Levemir, sliding scale insulin. Hypothyroidism -Resume on home dose of levothyroxine 175mcg daily Insomnia - Restoril 15mg QHS. Full code. Lovenox.
[2018-02-27] MEDS: ceFAZolin Inj 2,000 MG in Sodium Chlor 0.9% Inj 80 ML IV.SIG SCH (06:11)
[2018-02-27] MEDS: Levothyroxine 100 MCG Tablet PO SCH (06:12)
[2018-02-27] MEDS: Levothyroxine 75 MCG Tablet PO SCH (06:12)
[2018-02-27] MEDS: Morphine Inj 4 MG/ML Vial IV.PUSH PRN (06:17)
--- NOTE | 2018-02-27 06:27 | P.PNOP ---
Subjective Interval history: POd 2 s/p IMN left open tibia fx with incisional vac application doing well. reoprts pain but controlled. out of bed with walker Physical Exam Vital signs: Vital Signs 02/26/18 08:00 02/26/18 09:02 02/26/18 09:03 Temperature 98.2 F Pulse Rate 97 H Respiratory Rate 19 18 18 Blood Pressure 161/76 H Pulse Oximetry 96 02/26/18 11:48 02/26/18 12:00 02/26/18 12:52 Temperature 97.5 F L Pulse Rate 108 H Respiratory Rate 18 18 18 Blood Pressure 142/65 H Pulse Oximetry 96 02/26/18 14:33 02/26/18 16:00 02/26/18 16:50 Temperature 98 F Pulse Rate 97 H Respiratory Rate 18 18 18 Blood Pressure 136/65 Pulse Oximetry 98 02/26/18 20:00 02/27/18 00:00 Temperature 98.5 F 99.2 F Pulse Rate 115 H 112 H Respiratory Rate 18 17 Blood Pressure 143/88 H 156/67 H Pulse Oximetry 95 94 L Intake & Output 02/26/18 02/26/18 02/27/18 06:59 18:59 06:59 Intake Total 1400 / 1400 1720 / 1720 800 / 800 Output Total 730 / 730 0 / 0 1030 / 1030 Balance 670 / 670 1720 / 1720 -230 / -230 Weight 107 kg 99.7 kg Intake: IV 1400 / 1400 200 / 200 200 / 200 LR 1000 mL Inj 1,000 ML @ 80 1000 / 1000 mls/hr IV.CONT .[id number] JENNIFER Rx# :[id number] Gentamicin/NS 80 mg Premix 100 200 / 200 100 / 100 100 / 100 ML @ 200 mls/hr IV.SIG Q8H JENNIFER Rx#:[id number] Ancef Inj 2,000 MG In NS Inj 80 200 / 200 100 / 100 100 / 100 ML @ 200 mls/hr IV.SIG Q8H JENNIFER Rx#:[id number] Oral 1520 / 1520 600 / 600 Output: Urine 700 / 700 1000 / 1000 Wound Vac Amount 30 / 30 0 / 0 30 / 30 Left Leg 30 / 30 0 / 0 30 / 30 Other: Mode Setting Left Leg Continuous Continuous Continuous # Voids 2 Date of Last Bowel Movement 02/24/18 02/24/18 02/24/18 # Bowel Movements 0 Narrative: LLE: dressings celan and dry. intact. NVI. compartments soft. +vac. good seal Results - Labs CBC & Chem 7: 02/26/18 05:42 02/26/18 05:42 Laboratory Results - last 24 hr 02/26/18 02/26/18 02/26/18 05:42 05:42 08:42 WBC 9.3 RBC 3.98 L Hgb 12.4 L Hct 35.8 L MCV 90.0 MCH 31.1 MCHC 34.5 RDW 12.8 Plt Count 194 MPV 8.6 Neut % (Auto) 63.7 Lymph % (Auto) 22.4 Bartholomew % (Auto) 13.3 H Eos % (Auto) 0.4 Baso % (Auto) 0.2 Neut # (Auto) 5.9 Lymph # (Auto) 2.1 Bartholomew # (Auto) 1.2 H Eos # (Auto) 0.0 Baso # (Auto) 0.0 WBC Differential . Differential Comment Auto diff final Sodium 140 Potassium 3.7 D Chloride 102 Carbon Dioxide 30.1 Anion Gap 8 BUN 12 Creatinine 1.09 Estimated GFR 79 L POC Glucose 148 H Random Glucose 90 D Calcium 8.4 L 02/26/18 02/26/18 02/26/18 12:30 16:19 20:29 WBC RBC Hgb Hct MCV MCH MCHC RDW Plt Count MPV Neut % (Auto) Lymph % (Auto) Bartholomew % (Auto) Eos % (Auto) Baso % (Auto) Neut # (Auto) Lymph # (Auto) Bartholomew # (Auto) Eos # (Auto) Baso # (Auto) WBC Differential Differential Comment Sodium Potassium Chloride Carbon Dioxide Anion Gap BUN Creatinine Estimated GFR POC Glucose 149 H 157 H 210 H Random Glucose Calcium - Procedures 02/25/18Dr. Westfall performed: Left tibia irrigation and debridement, left tibia reduction and intramedullary fixation, application of wound VAC dressing Assessment and Plan - Assessment and Plan 1) Left Open Tibia Shaft Fx s/p I&D with IMN and incisional Vac - POD 2 -PWB up to 50lbs -maintain incisional vac: 125mmHg, continuous -daily dressing changes POD 2 -plan for DC home with portable incisional vac tomorrow morning once IV Abx are completed -will follow up with Khoi or RIVAS on friday in office for planned removal of incisional vac. -I vac rep has been contacted and is aware. should be arranging home vac today. -ortho cleared for DC home today -DVT prophylaxis -scripts on chart [id number] Prescription Drug Monitoring Database has been queried and verified prior to prescribing the controlled substance. Acute pain exception. This patient has normal, predicted, physiological, and time limited response to an adverse mechanical stimulus associated with surgery, trauma, or acute illness as described in my notes. There is a lack of alternative treatment options other than to include the prescribed narcotic treatment for this condition.
[2018-02-27] MEDS: Gentamicin/NS 80 mg Premix 100 ML IV.SIG SCH (07:01)
[2018-02-27] MEDS: amLODIPine 10 MG Tablet PO SCH (08:36)
[2018-02-27] MEDS: Doxazosin 4 MG Tablet PO SCH (08:36)
[2018-02-27] MEDS: Senna/Docusate Sodium 8.6/50 MG Tablet PO SCH (08:36)
[2018-02-27] MEDS: Enoxaparin Inj 40 MG/0.4 ML Syringe SQ SCH (08:37)
[2018-02-27] MEDS: Calcium/Vitamin D 250/125 MG Tablet PO SCH ×2 (08:38→12:16)
--- NOTE | 2018-02-27 09:49 | P.DCO ---
- Physical Therapy Order: Evaluate and treat, Improve ambulation, Strength and gait training - Home Health Nursing Order: Medical education, Signs/symptoms of disease process, Wound care and dressing changes, Nursing assessment with vital signs - Case Management Consult No - Certification I have seen patient Husam Grover on 02/27/18. My clinical findings support the need for the requested home health care services because: Limited mobility due to disease progression, Limited ability to care for self, High risk of falls, Infection with risk of complications I certify that my clinical findings support that this patient is homebound because: Post-op weakness, Unsafe to leave home unassisted, Unable to use public transportation
--- NOTE | 2018-02-27 12:06 | P.DS ---
Date of admission: 02/24/18 21:02 Primary care physician: UNKNOWN Attending physician on discharge: Patricia Aguilar Anticipated date of discharge: 02/27/18 Brief History from admission: This is a 32yo male patient with PMHX of DM with implanted insulin pump, HTN and hypothyroidism who was in his normal state of health until he injured his left leg while participating in a Judo sparring match. He was sparring with someone when he fell onto his left leg with all of their weight. Patient reports hearing a snap and was unable to place any weight on the left leg secondary to severe pain. He is also noted to have open laceration. Patient denies hitting his head or losing consciousness. He denies any pain in his neck , weakness, numbness or tingling. On arrival to the ED, patient reports feeling shaky. He was found to have a low blood sugar 44 and was given an amp of D50. Tib/fib xrays reveal a slightly comminuted fracture of the distal shaft of the tibia and fibula with at least half shaft width displacement and overlying laceration. There is also an obliquely oriented mildly displaced fracture of the fibular head neck. DS: Medications - Discharge Medications Prescriptions: oxycodone-acetaminophen [Percocet] 1 tab PO Q4H #40 tab rivaroxaban [Xarelto] 10 mg PO DAILY #14 tab DS: Summary Hospital Course: 32yo male patient with PMHX of DM, HTN and hypothyroidism who was in his normal state of health until he injured his left leg while participating in a Judo sparring match. Open left comminuted fracture distal tibia and fibula: acute. -Left Tib/Fib Xray reviewed, shows Slightly comminuted fractures of the distal shaft tibia and fibula as above with additional mildly displaced fracture of the left fibular head and neck. -Tetanus vaccine updated in ER. -received IV Ancef -Ortho consulted, seen by Dr. Westfall -02/25 s/p Left tibia I&D, reduction and intramedullary fixation, application of wound VAC dressing -Continued pain control with percocet prn, IV morphine prn, with Bowel regimen -DVT prophylaxis with Lovenox per ortho -PT consulted, 50lbs weight bearing LLE per ortho Hypertension: uncontrolled, suspect secondary to LLE pain from open fracture injury -Resume on home dose of amlodipine, Cozaar, and Cardura -Continue to monitor BP and adjust treatment accordingly Type I Diabetes: chronic, diagnosed at age 10. Has insulin pump. -Patient used his insulin pump. We discontinued Levemir, sliding scale insulin. Hypothyroidism -Resume on home dose of levothyroxine 175mcg daily Insomnia - Restoril 15mg QHS. Full code. Lovenox. Patient is cleared for discharge by orthopedic surgery. When home health is arranged, patient can be discharged. - Time Spent with Patient Total time spent providing and/or coordinating discharge services: Less than 30 minutes - Quality: VTE Deep Vein Thrombosis/Pulmonary Embolism Present on Admission: No Exam Vital signs: Vital Signs 02/26/18 12:52 02/26/18 14:33 02/26/18 16:00 Temperature 98 F Pulse Rate 97 H Respiratory Rate 18 18 18 Blood Pressure 136/65 Pulse Oximetry 98 02/26/18 16:50 02/26/18 20:00 02/27/18 00:00 Temperature 98.5 F 99.2 F Pulse Rate 115 H 112 H Respiratory Rate 18 18 17 Blood Pressure 143/88 H 156/67 H Pulse Oximetry 95 94 L 02/27/18 06:19 02/27/18 08:00 02/27/18 11:00 Temperature 99.4 F Pulse Rate 93 H Respiratory Rate 18 18 18 Blood Pressure 173/77 H Pulse Oximetry 96 Intake & Output 02/26/18 02/27/18 02/27/18 18:59 06:59 18:59 Intake Total 1720 / 1720 900 / 900 100 / 100 Output Total 0 / 0 1030 / 1030 Balance 1720 / 1720 -130 / -130 100 / 100 Weight 99.7 kg Intake: IV 200 / 200 300 / 300 100 / 100 Gentamicin/NS 80 mg Premix 100 100 / 100 100 / 100 100 / 100 ML @ 200 mls/hr IV.SIG Q8H JENNIFER Rx#:[id number] Ancef Inj 2,000 MG In NS Inj 80 100 / 100 200 / 200 ML @ 200 mls/hr IV.SIG Q8H JENNIFER Rx#:[id number] Oral 1520 / 1520 600 / 600 Output: Urine 1000 / 1000 Wound Vac Amount 0 / 0 30 / 30 Left Leg 0 / 0 30 / 30 Other: Mode Setting Left Leg Continuous Continuous Continuous # Voids 2 Date of Last Bowel Movement 02/24/18 02/24/18 02/24/18 # Bowel Movements 0 Results Procedures completed during hospitalization: 02/25/18Dr. Westfall performed: Left tibia irrigation and debridement, left tibia reduction and intramedullary fixation, application of wound VAC dressing Labs on day of discharge: Labs from last 24 hours 02/27/18 02/26/18 02/26/18 08:07 20:29 16:19 POC Glucose 179 H 210 H 157 H 02/26/18 12:30 POC Glucose 149 H - Impressions ITS Impressions Chest X-Ray 02/24/18 20:06 CONCLUSION: Negative examination. Pelvis X-Ray 02/24/18 20:06 CONCLUSION: No acute bony abnormality. Tibia/Fibula X-Ray 02/25/18 00:00 CONCLUSION: Status post open rigid internal fixation. Discharge Plan - Discharge Disposition Patient Disposition: Disch W/Home Health Service - Discharge Condition Condition: Good - Discharge Order Discharge Orders: Discharge Order (Routine); Ordered 02/27/18 Ordered By: Patricia Aguilar Orthopedic Clear for Discharge (Routine); Ordered 02/27/18 Ordered By: Jeremiah Soria - Discharge Details Anticipated Discharge Date: 02/27/18 Discharge Comment: Discharge when Home health arranged. - Physicians Team Primary Care Provider: UNKNOWN, Attending Provider: Patricia Aguilar Other Providers: Jacquelin López MD ; Moody Westfall MD
[2018-02-27] MEDS: Acetaminophen 325 MG Tablet PO PRN (15:20)
== END 2018-02-27 17:46 | disposition home health service (06) ==
LOC: NEPC 19:32 → NEDA 21:02 → NEPFCDU 23:16 → N06 02-25 06:59
PROVIDERS: ADMIT Hospitalist; ATTEND Hospitalist
PROC: ORIFTIB (2018-02-25 07:18)